=== PATIENT | female | born 1990 | race Caucasian/White ===

== ENCOUNTER 2018-09-10 13:22 | Emergency (ER) | payer MEDICAID, SELFPAY ==
--- NOTE | 2018-09-10 13:35 | NUR.NOTE ---
pt has been experiencing nausea and vomiting for the past 7 days
--- NOTE | 2018-09-10 14:40 | W.ED.GENAD ---
Discharge Plan Disposition Patient Disposition: HOME Condition: Stable Discharge Details Chief Complaint: Nausea/Vomit/Diar Clinical Impression: Nausea vomiting and diarrhea Primary Care Provider: Atul Gauthier ED Provider: Franny De La Rosa Home Meds and New Rx's Prescriptions: New ondansetron HCl [Zofran] 4 mg tablet 4 mg PO TID PRN (Reason: nausea and vomiting) Qty: 6 RF: 0 Continued norgestimate-ethinyl estradiol [Sprintec (28)] 1 EACH tablet 1 tab-cap PO DAILY Qty: 3 RF: 3 sumatriptan succinate [Imitrex] 25 MG tablet 25 mg PO DIRECTED PRN (Reason: Headache) Qty: 8 RF: 0 Discharge Instructions Instructions: Acute Nausea and Vomiting (ED), Acute Diarrhea (ED) Additional Instructions: Drink plenty of fluids and get plenty of rest. Take the Zofran as needed and directed for any nausea or vomiting. Follow-up with your primary care doctor in 2 days for reevaluation. Return immediately to the emergency department any worsening or new concerning symptoms. Stand Alone Forms: Work Release Discharge Data Discharge Physician: Franny De La Rosa Medical Decision Making 28-year-old female presents with nausea, vomiting and diarrhea for the past week. Last vomiting at 3 AM, no diarrhea for the past 2 days. Admits to some ear pain but denies any fever, chills or body aches. Vitals within normal limits. Patient afebrile. Patient appears nontoxic and in no acute distress. No meningeal signs. Normal ENT exam. Lungs clear to auscultation. Abdomen soft and nontender. 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 No flu shot. She is declining a rapid influenza test today. Discussed with patient that her symptoms can viral in nature. As her abdomen is soft and nontender, with normal vitals, I do not see any indication for imaging and patient is agreeable. Offered IV and IV fluids with patient declines. Will obtain labs due to symptoms present for 1 week to assess for acute electrolyte abnormality, and kidney function and will give a dose of PO zofran and reassess. 1600 --labs reviewed and unremarkable. Normal white blood cell count, electrolytes and renal function. Normal liver function and lipase. No evidence of infection on urinalysis. Urine negative. Patient states she feels much better and is requesting to go home. She denies any nausea. Patient is declining any food or drink at this time. We will send home with 1 tab of Zofran as well as prescription. She requests a work note. Instructed to follow-up with primary care doctor for reevaluation and return at any time if worse. Medical Records Medical records reviewed: Yes I reviewed the patient's medical records. Lab Data Lab results reviewed: Yes I reviewed the patient's lab results. Laboratory Tests Range/Units 09/10/18 09/10/18 09/10/18 14:28 14:43 14:43 WBC (4.4-10.8) k/cumm 4.84 RBC (4.00-5.20) m/cumm 4.39 Hgb (12.0-15.5) g/dL 13.1 Hct (36.0-46.0) % 38.1 MCV (80-95) fL 86.8 MCH (27.0-33.0) pg 29.8 MCHC (32.0-36.0) g/dL 34.4 RDW (11.7-14.6) % 12.0 Plt Count (130-400) x1000/uL 242 MPV (8.0-11.0) fL 11.1 H Immature Gran % 0.0 Neutrophils % 48.8 Lymphocytes % 40.1 Monocytes % 9.1 Eosinophils % 1.4 Basophils % 0.6 Absolute Neutrophils (1.2-6.7) k/cumm 2.36 Absolute Lymphocytes (1.2-3.4) k/cumm 1.94 Absolute Monocytes (0.11-0.7) k/cumm 0.44 Absolute Eosinophils (0.0-0.7) k/cumm 0.07 Absolute Basophils (0.0-0.2) k/cumm 0.03 Sodium (136-145) mmol/L 143 Potassium (3.5-5.1) mmol/L 3.6 Chloride (98-107) mmol/L 105 Carbon Dioxide (21.0-32.0) mmol/L 29.3 Anion Gap (3-11) mmol/L 8.7 BUN (7-18) mg/dL 8 Creatinine (0.55-1.02) mg/dL 0.53 L Estimated GFR/1.73 m2 (mL/min/1.73m2) >= 60.00 Glucose (70-100) mg/dL 71 Calcium (8.5-10.1) mg/dL 9.3 Total Bilirubin (0.2-1.0) mg/dL 1.5 H AST (15-37) U/L 9 L ALT (12-78) U/L 23 Alkaline Phosphatase (46-116) U/L 31 L Total Protein (6.4-8.2) g/dL 7.7 Albumin (3.4-5.0) g/dL 4.1 Lipase (73-393) U/L 177 Urine Color (Yellow) Yellow Urine Clarity Clear Urine pH (5-8) 8.5 H Ur Specific [place] (1.005-1.025) 1.015 Urine Protein (Negative) mg/dL Negative Urine Ketones (Negative) mg/dL Negative Urine Blood (Negative) Negative Urine Nitrite (Negative) Negative Urine Bilirubin (Negative) Negative Urine Urobilinogen (Up TO 0.2) EU/dL 0.2 Ur Leukocyte Esterase (Negative) Negative Urine Glucose (Negative) mg/dL Negative Urine test negative HPI General Mode of arrival: ambulatory. Date/Time Provider Initiated Documentation: 09/10/18 14:16. Limitations to Documentation: no limitations. Information obtained by: patient. HPI Narrative: Patient is a 28-year-old female who presents with nausea and diarrhea for the past week, vomiting for the past 2 days. States her last episode of diarrhea was 2 days ago. States the diarrhea has been loose and brown but denies any bleeding. She states she has been vomiting up to 2 times daily, last occurring at 3 AM this morning. She also admits to a feeling of fluid in both of her ears with decreased hearing and right ear pain. She admits to feeling feverish but denies any known fever, chills or body aches. She admits to intermittent lower abdominal pain, but denies any at present. 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 She has been using Pepto-Bismol for symptoms without relief. She denies any urinary symptoms, chest pain, shortness of breath, rash, recent travel, recent antibiotics. Related Data Home Medications Medication Instructions Recorded Confirmed sumatriptan succinate [Imitrex] 25 mg PO DIRECTED PRN #8 tablet 03/27/15 12/01/17 norgestimate-ethinyl estradiol 1 tab-cap PO DAILY #3 pack 03/15/18 [Sprintec (28)] ondansetron HCl [Zofran] 4 mg PO TID PRN #6 tab 09/10/18 Previous Rx's Medication Instructions Recorded sumatriptan succinate [Imitrex] 25 mg PO DIRECTED PRN #8 tablet 03/27/15 norgestimate-ethinyl estradiol 1 tab-cap PO DAILY #3 pack 03/15/18 [Sprintec (28)] ondansetron HCl [Zofran] 4 mg PO TID PRN #6 tab 09/10/18 Allergies Allergy/AdvReac Type Severity Reaction Status Date / Time No Known Allergies Allergy Unverified 03/15/18 11:51 General Stated Complaint: Nausea/Vomit/Diar GIAN: 4 Review of Systems Review of Systems All systems reviewed & are unremarkable except as noted in HPI and below Constitutional Reports as per HPI, Denies chills and Denies fever(s) Eyes Denies blurry vision ENT Denies dizziness, Denies sore throat and Denies throat swelling Cardiovascular Denies chest pain and Denies dyspnea Respiratory Denies cough and Denies dyspnea Gastrointestinal Denies abdominal pain, Reports diarrhea and Reports vomiting Genitourinary Denies hematuria and Denies dysuria Musculoskeletal Denies back pain and Denies numbness Integumentary/Breasts Denies lesions and Denies rash Neurologic Denies dizziness, Denies focal weakness and Denies numbness Allergic/Immunologic Denies throat swelling [facility] Medical History Migraine (Chronic) Surgical History H/O wisdom tooth extraction (Acute) Adenoidectomy Tonsillectomy Family History Father No problems noted. Mother No problems noted. Grandmother Personal history of malignant neoplasm Hyperlipidemia Grandfather No problems noted. Social History Smoking and Tabacco status: Former Tobacco Use Exam Const General: cooperative and healthy appearing Orientation: alert and awake [facility] Head: normal to inspection Ears: hearing grossly normal bilaterally, external ears normal and TM's normal bilaterally General nose exam: external nose normal Face and sinus: normal facial exam Mouth: oral mucosae normal Teeth and gingiva: dentition normal Throat: posterior oropharynx normal Eyes General: appearance normal, both eyes and all related structures Eyelids: eyelids normal Pupils: PERRL EOM: EOM intact bilaterally Neck Neck: normal visual inspection Lymphatic: no lymphadenopathy noted Chest Chest: normal inspection of the chest Resp Effort & Inspection: normal respiratory effort and able to speak in complete sentences Auscultation: clear to auscultation bilaterally Cardio Rate: regular rate Rhythm: regular rhythm GI Inspection: normal to inspection Palpation: soft, not firm, no guarding, no hepatosplenomegaly, no masses and nontender Auscultation: normal bowel sounds Skin General skin exam: no rashes or lesions noted Neuro General: alert and awake Cognition: normal cognition Speech: speech normal Gait: normal gait Motor: muscle tone normal throughout Sensory Exam: no sensory deficits noted Extrem General: normal to inspection, full ROM, normal capillary refill and no edema Psych Appearance: grossly normal Mental Status: mental status grossly normal Speech and Movement: speech and movement normal Affect: normal affect Thought Process: normal
[2018-09-10 14:55] LABS: Absolute Basophil Count 0.03 k/cumm (0.0-0.2); Absolute Eosinophil Count 0.07 k/cumm (0.0-0.7); Absolute Lymphocyte Count 1.94 k/cumm (1.2-3.4); Absolute Monocyte Count 0.44 k/cumm (0.11-0.7); Absolute Neutrophil Count 2.36 k/cumm (1.2-6.7); Basophils % 0.6; Eosinophils % 1.4; HCT 38.1 % (36.0-46.0); HGB 13.1 g/dL (12.0-15.5); Lymphocytes % 40.1; Mean Corp. HGB Concentration 34.4 g/dL (32.0-36.0); Mean Corpuscular Hemoglobin 29.8 pg (27.0-33.0); Mean Corpuscular Volume 86.8 fL (80-95); Mean Platelet Volume 11.1 fL (8.0-11.0); Monocytes % 9.1; Neutrophils % 48.8; Platelet Count 242 x1000/uL (130-400); RBC 4.39 m/cumm (4.00-5.20); White Blood Cell Count 4.84 k/cumm (4.4-10.8)
[2018-09-10] MEDS: Dicyclomine 20 MG TAB PO (14:56)
[2018-09-10 14:57] LABS: Bilirubin Negative (Negative); Blood Negative (Negative); Clarity Clear; Glucose Negative (Negative); Ketones Negative (Negative); Leukocyte Esterase Negative (Negative); Nitrite Negative (Negative); Specific Gravity 1.015 (1.005-1.025); Urobilinogen 0.2 EU/dL (Up TO 0.2); pH 8.5 (5-8)
[2018-09-10] MEDS: Ondansetron O.D.T. 4 MG TABEF PO ×2 (14:57→16:04)
[2018-09-10 15:08] LABS: ALT 23 U/L (12-78); AST 9 U/L (15-37); Albumin 4.1 g/dL (3.4-5.0); Alkaline Phosphatase 31 U/L (46-116); Anion Gap 8.7 mmol/L (3-11); BUN 8 mg/dL (7-18); Bilirubin, Total 1.5 mg/dL (0.2-1.0); CO2 29.3 mmol/L (21.0-32.0); CREATININE 0.53 mg/dL (0.55-1.02); Chloride 105 mmol/L (98-107); Glucose 71 mg/dL (70-100); Lipase 177 U/L (73-393); Potassium 3.6 mmol/L (3.5-5.1); Sodium 143 mmol/L (136-145); Total Protein 7.7 g/dL (6.4-8.2)
[2018-09-10 15:19] LABS: Calcium 9.3 mg/dL (8.5-10.1)
[2018-09-10 16:04] VITALS: BP 111/58; PULSE 60; RESP 16; TEMP 36.6; O2SAT 100
[2018-09-10 20:22] VITALS: BP 111/58; PULSE 60; RESP 16; TEMP 36.6; O2SAT 100
== END 2018-09-10 16:19 | disposition home or self-care (01) ==
PROVIDERS: Emergency Provider Physician Assistant; PCP Specialist/Technologist Athletic Trainer
DX: R11.2 Nausea with vomiting, unspecified (principal); R19.7 Diarrhea, unspecified
CPT/HCPCS: 36415; 80053; 81025; 83690; 99283; 81003; 85025

== ENCOUNTER 2018-10-21 19:29 | Emergency (ER) | payer MEDICAID, SELFPAY ==
[2018-10-21 19:36] VITALS: BP 122/69; PULSE 107; RESP 20; TEMP 37.1; O2SAT 98
--- NOTE | 2018-10-21 19:57 | W.ED.GENAD ---
Discharge Plan Disposition Patient Disposition: HOME Condition: Good Discharge Details Chief Complaint: EarProblem Clinical Impression: Acute right otitis media Primary Care Provider: Atul Gauthier ED Provider: Moody Leroy Home Meds and New Rx's Prescriptions: New amoxicillin 500 mg capsule 500 mg PO BID Qty: 14 RF: 0 No Action norgestimate-ethinyl estradiol [Sprintec (28)] 1 EACH tablet 1 tab-cap PO DAILY Qty: 3 RF: 3 sumatriptan succinate [Imitrex] 25 MG tablet 25 mg PO DIRECTED PRN (Reason: Headache) Qty: 8 RF: 0 Discharge Instructions Instructions: Otitis Media (ED) Additional Instructions: Please take the antibiotic as directed. If you notice any worsening of your symptoms, or any new symptoms such as vomiting, diarrhea, fever, chills, shortness of breath, chest pain, numbness, weakness, or fainting , please return immediately to the emergency department for reevaluation. Please follow up with your primary care provider as soon as possible for reassessment and reevaluation. As always, it was a pleasure participating in your medical care today. Referrals: Atul Gauthier [Primary Care Provider] - Medical Decision Making This is a pleasant 28-year-old female who presents with pain in her right ear. She has a history of cerumen impaction. No evidence of clinical infection for otitis externa, however we are unable to visualize the tympanic membrane. We will washout the ear, remove the wax, and reassess. 8:10 PM After both suctioning, and fluid washout, the patient has had complete removal of cerumen impaction. She is feeling much better at this time. Evaluation of her right tympanic membrane demonstrates both erythema, and a small amount of effusion as well, effusion does appear slightly purulent. No evidence of rupture peer I do feel that she is suffering from otitis media. Will give first dose of amoxicillin here, prescription for home use. Recommended continue Tylenol and Motrin. Discussed red flags for which to return and the patient understands. I have extensively reviewed the treatment plan and discharge instructions with the patient. I have addressed all patient concerns at this time. The patient was made aware of what symptoms to monitor for that would warrant a return to the emergency department. Discussed the plan with the patient, they demonstrate verbal understanding and agreement with our assessment and plan at this time. HPI General Date/Time Provider Initiated Documentation: 10/21/18 19:30. HPI Narrative: This is a 28-year-old female with no significant past medical history except for previous problems with earwax who presents today for pain in the right ear, decreased hearing in the right ear, and suspected earwax impaction. Patient states that the symptoms have been present for the last 1-2 weeks. She denies any headache, fever, chills, discharge or other complaints. She denies any other modifying factors. No other complaints at this time. Related Data Home Medications Medication Instructions Recorded Confirmed sumatriptan succinate [Imitrex] 25 mg PO DIRECTED PRN #8 tablet 03/27/15 10/21/18 norgestimate-ethinyl estradiol 1 tab-cap PO DAILY #3 pack 03/15/18 10/21/18 [Sprintec (28)] amoxicillin 500 mg PO BID #14 cap 10/21/18 Previous Rx's Medication Instructions Recorded sumatriptan succinate [Imitrex] 25 mg PO DIRECTED PRN #8 tablet 03/27/15 norgestimate-ethinyl estradiol 1 tab-cap PO DAILY #3 pack 03/15/18 [Sprintec (28)] amoxicillin 500 mg PO BID #14 cap 10/21/18 Allergies Allergy/AdvReac Type Severity Reaction Status Date / Time No Known Allergies Allergy Unverified 10/21/18 20:10 General Stated Complaint: EarProblem GIAN: 4 Review of Systems Review of Systems All systems reviewed & are unremarkable except as noted in HPI and below PFSH Social History Smoking/Tobacco Use Status: Former Tobacco Use Drug use: Daily Do you feel safe at home: Yes Do you feel safe in your relationship?: Yes Exam Narrative Exam Narrative: 1.Const: Well-nourished, Well-developed, appearing stated age 2.Eyes: PERRL, no conjunctival injection, and symmetrical lids. 3.ENT: Atraumatic external nose and ears. Moist MM. Neck: Symmetric, trachea midline, No thyromegaly. Left ear demonstrates mild cerumen impaction, right ear demonstrates complete cerumen impaction. Unable to visualize the tympanic membrane. No evidence of erythema in the ear canal, no mastoid tenderness. No tenderness on the tragus of the auricle. 4.CVS: +S1/S2, No murmurs or gallops. Peripheral pulses 2+ and equal in all extremities. Brisk capillary refill in all extremities. 5.RESP: Unlabored respiratory effort. Clear to auscultation bilaterally. No wheezes rales or rhonchi 6.GI: Soft, Nontender/Nondistended, No hepatosplenomegaly. No guarding or rebound. 7.MSK: Normocephalic/Atraumatic, Extremities w/o deformity or ttp No cyanosis or clubbing, Normal movement of all extremities 8.Skin: Warm, Dry. No rashes or lesions. 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 Sensation grossly intact, no focal neurologic deficits. 10.Psych: (AAO) x3. Appropriate mood and affect Course Vital Signs Temperature 37.1 C 10/21/18 19:36 Pulse 107 H 10/21/18 19:36 Respiratory Rate 20 10/21/18 19:36 Blood Pressure 122/69 10/21/18 19:36 Pulse Oximetry 98 10/21/18 19:36 Temperature 37.1 C 10/21/18 19:36 Temperature Source Temporal Artery Scan 10/21/18 19:36 Pulse 107 H 10/21/18 19:36 Respiratory Rate 20 10/21/18 19:36 Respiratory Effort Non-Labored 10/21/18 19:36 Blood Pressure 122/69 10/21/18 19:36 Blood Pressure Position Sitting 10/21/18 19:36 Pulse Oximetry 98 10/21/18 19:36 Oxygen Delivery Method Room Air 10/21/18 19:36 Oxygen Flow Rate 0 10/21/18 19:36 Pain Level 8 10/21/18 19:40
[2018-10-21] MEDS: Amoxicillin 500 MG CAP PO (20:16)
== END 2018-10-21 20:21 | disposition home or self-care (01) ==
PROVIDERS: Emergency Provider Student in an Organized Health Care Education/Training Program; PCP Specialist/Technologist Athletic Trainer
DX: H66.91 Otitis media, unspecified, right ear (principal)
CPT/HCPCS: 99283

== ENCOUNTER 2019-03-09 17:41 | Emergency (ER) | payer MEDICAID, SELFPAY ==
[2019-03-09 17:51] VITALS: BP 118/74; PULSE 98; RESP 20; TEMP 36.9; O2SAT 96
[2019-03-09 18:08] LABS: Bilirubin Negative (Negative); Blood Trace-lysed (Negative); Clarity Clear (Clear); Glucose Negative (Negative); Ketones Negative (Negative); Leukocyte Esterase Negative (Negative); Nitrite Negative (Negative); Specific Gravity 1.015 (1.005-1.025); Urobilinogen 0.2 EU/dL (Up TO 0.2)
[2019-03-09 18:19] LABS: Bacteria Moderate HPF (Negative); C & S Indicated? Yes; Casts Negative LPF (Negative); Crystals Negative HPF (Negative); Epithelial Cells Few HPF (Negative); Mucus Negative (Negative); RBC Negative (0-2); WBC 0-2 HPF (0-5)
[2019-03-09 18:28] VITALS: BP 118/74; PULSE 98; RESP 20; TEMP 36.9; O2SAT 96
--- NOTE | 2019-03-09 18:28 | W.ED.GENAD ---
Discharge Plan Disposition Patient Disposition: HOME Condition: Stable Discharge Details Chief Complaint: Urinary Clinical Impression: Urinary tract infection Primary Care Provider: Atul Gauthier ED Provider: Felipe Conrad Home Meds and New Rx's Prescriptions: New ciprofloxacin HCl 500 mg tablet 500 mg PO BID Qty: 14 RF: 0 No Action sumatriptan succinate [Imitrex] 25 MG tablet 25 mg PO DIRECTED PRN (Reason: Headache) Qty: 8 RF: 0 Discharge Instructions Instructions: Urinary Tract Infection in Women (ED) Additional Instructions: if not better in a week see your primary care provider or women's wellness if you have fevers, severe worsening pain or persistent vomit return to the emergency department Medical Decision Making 28 yo female with no chronic medical problems comes in with 2 weeks of urinary frequency and burning. Finally came in tonight as symptoms have not improved and has not had time to be seen. No fevers or abdominal pain. Does have right cva tenderness on exam otherwise appears well in no distress. UA does have bacteria so will start her glenn bx to cover for uti and given cva tenderness will prescribe cipro to cover for early pyelo. Advised f/u with pcp or women's wellness if not better or return here if worsening Differential Diagnosis cystitis, pyelo HPI General Mode of arrival: ambulatory. Date/Time Provider Initiated Documentation: 03/09/19 17:53. Limitations to Documentation: no limitations. Information obtained by: patient. History of Present Illness 28 year old F presents to the emergency department with the chief complaint of urinary frequency, described as moderate, No relieving factors improve symptom(s), No exacerbating factors reported . Patient did receive the following treatments prior to arrival, none Related Data Home Medications Medication Instructions Recorded Confirmed sumatriptan succinate [Imitrex] 25 mg PO DIRECTED PRN #8 tablet 03/27/15 03/09/19 ciprofloxacin HCl 500 mg PO BID #14 tab 03/09/19 Previous Rx's Medication Instructions Recorded sumatriptan succinate [Imitrex] 25 mg PO DIRECTED PRN #8 tablet 03/27/15 ciprofloxacin HCl 500 mg PO BID #14 tab 03/09/19 Allergies Allergy/AdvReac Type Severity Reaction Status Date / Time No Known Allergies Allergy Unverified 03/09/19 17:52 General Stated Complaint: Urinary GIAN: 3 Review of Systems Review of Systems All systems reviewed & are unremarkable except as noted in HPI and below Constitutional Denies chills, Denies fever(s) and Denies weakness Cardiovascular Denies dyspnea Respiratory Denies dyspnea Gastrointestinal Denies abdominal pain, Denies nausea and Denies vomiting Neurologic Denies weakness [facility] Social History Smoking/Tobacco Use Status: Former Tobacco Use Drug use: Daily Do you feel safe at home: Yes Do you feel safe in your relationship?: Yes Exam Const General: no acute distress Orientation: alert HENMT Head: normal to inspection Ears: external ears normal General nose exam: external nose normal Mouth: moist mucous membranes Eyes General: appearance normal, both eyes and all related structures Neck Neck: normal visual inspection Resp Effort & Inspection: normal respiratory effort and able to speak in complete sentences Cardio Rate: regular rate Skin General skin exam: no rashes or lesions noted Neuro General: alert and oriented x3 Extrem General: normal to inspection Psych Mental Status: mental status grossly normal Course Vital Signs Temperature 36.9 C 03/09/19 17:51 Pulse 98 H 03/09/19 17:51 Respiratory Rate 20 03/09/19 17:51 Blood Pressure 118/74 03/09/19 17:51 Pulse Oximetry 6 L 03/09/19 17:51 Temperature 36.9 C 03/09/19 17:51 Temperature Source Temporal Artery Scan 03/09/19 17:51 Pulse 98 H 03/09/19 17:51 Respiratory Rate 20 03/09/19 17:51 Respiratory Effort Non-Labored 03/09/19 17:55 Blood Pressure 118/74 03/09/19 17:51 Pulse Oximetry 6 L 03/09/19 17:51 Oxygen Delivery Method Room Air 03/09/19 17:51 Oxygen Flow Rate 0 03/09/19 17:51 Pain Level 6 03/09/19 17:51 Lab/Test Results Lab/Test Results: 03/09/19 18:00 Urine - Reflex from Ua Urine Culture - Pending Laboratory Tests Range/Units 03/09/19 18:00 Urine Color (Yellow) Yellow Urine Clarity (Clear) Clear Urine pH (5-8) 7.0 Ur Specific [place] (1.005-1.025) 1.015 Urine Protein (Negative) mg/dL Negative Urine Ketones (Negative) mg/dL Negative Urine Blood (Negative) Trace-lysed H Urine Nitrite (Negative) Negative Urine Bilirubin (Negative) Negative Urine Urobilinogen (Up TO 0.2) EU/dL 0.2 Ur Leukocyte Esterase (Negative) Negative Urine RBC (0-2) Negative Urine WBC (0-5) HPF 0-2 Ur Epithelial Cells (Negative) HPF Few Urine Crystals (Negative) HPF Negative Urine Bacteria (Negative) HPF Moderate Urine Casts (Negative) LPF Negative Urine Mucus (Negative) Negative Ur Culture Indicated? Yes Urine Glucose (Negative) mg/dL Negative
== END 2019-03-09 18:31 | disposition home or self-care (01) ==
PROVIDERS: Emergency Provider Emergency Medicine; PCP Specialist/Technologist Athletic Trainer
DX: N39.0 Urinary tract infection, site not specified (principal)
CPT/HCPCS: 81025; 99283; 81003; 81015; 87086

== ENCOUNTER 2019-03-28 08:31 | Outpatient (REF) | payer MEDICAID, SELFPAY ==
--- NOTE | 2019-03-28 07:30 | PAPFT_PTH ---
PATIENT: Clarita Dominguez LOC: [facility] U#:[id number] AGE/SX: 28/F ROOM: RE03/28/[address]: Chaya Woodall : 1990 BED: DIS: 03/28/2019 SPEC #: [id number] RECD: 03/29/19 12:47 STATUS: KELLIE REPepe #: [id number] ZAIDA: 03/28/19 07:[address]: Chaya Woodall DEPT: [facility] Cytology RECD BY: María Elena Kate ENTERED: 03/29/19 12:47 SP TYPE: PAPFT OTHR DR: Atul Gauthier Tissues: 1 - CX/ENDOCX FOR PAP SMEARS Procedures: PAP THIN PREP/[facility] Screening Comments: [id number]
[2019-03-30 13:09] LABS: Chlamydia Result Negative; GC Result Negative; Specimen Description CERVIX
== END 2019-03-28 08:51 ==
LOC: NCHCN 08:31
PROVIDERS: PCP Specialist/Technologist Athletic Trainer; Visit Provider Physician Assistant Medical
DX: R30.0 Dysuria (principal); Z12.4 Encounter for screening for malignant neoplasm of cervix
CPT/HCPCS: 87491; 87591; 88142; 87480; 87510; 87660

== ENCOUNTER 2019-12-05 18:23 | Outpatient (REF) | payer MEDICAID, SELFPAY ==
[2019-12-07 15:07] LABS: Chlamydia Result Negative (Negative); GC Result Negative (Negative)
== END 2019-12-05 18:43 ==
LOC: NCHCN 18:23
PROVIDERS: PCP Specialist/Technologist Athletic Trainer; Referring Provider Nurse Practitioner Family; Visit Provider Nurse Practitioner Family
DX: R30.0 Dysuria (principal); Z11.3 Encounter for screening for infections with a predominantly sexual mode of transmission; R10.9 Unspecified abdominal pain
CPT/HCPCS: 87491; 87591; 87086; 87480; 87510; 87660

== ENCOUNTER 2020-10-01 19:37 | Outpatient (REF) | payer MEDICAID, SELFPAY | END 2020-10-01 19:38 | disposition home or self-care (01) | LOC: NCHCN 19:37 | PROVIDERS: PCP Specialist/Technologist Athletic Trainer; Visit Provider Nurse Practitioner Family | DX: L98.8 Other specified disorders of the skin and subcutaneous tissue (principal) | CPT/HCPCS: 87077; 87070; 87186 ==

== ENCOUNTER 2021-02-27 07:56 | Emergency (ER) | payer MEDICAID, SELFPAY ==
--- NOTE | 2021-02-27 08:09 | W.ED.GENAD ---
Discharge Plan Disposition Patient Disposition: HOME Condition: Stable Discharge Details Clinical Impression: Nausea & vomiting Primary Care Provider: Atul Gauthier ED Provider: Danilo Thapa Home Meds and New Rx's Prescriptions: New ondansetron HCl [Zofran] 4 mg tablet 4 mg PO Q8H PRNQty: 10 RF: 0 Continued desogestrel-ethinyl estradiol [Apri] 0.15-0.03 mg tablet 1 tab PO DAILY Qty: 84 RF: 2 sumatriptan succinate [Imitrex] 25 MG tablet 25 mg PO DIRECTED PRN (Reason: Headache) Qty: 8 RF: 0 Discharge Instructions Instructions: Acute Nausea and Vomiting (ED) Additional Instructions: Zofran as directed. Clear liquid diet, advance as tolerated. Please watch for new or worsening symptoms and return to the ER for any concerns. Otherwise I recommend reaching out your primary care provider to discuss your ER visit and need for outpatient reevaluation. Medical Decision Making 30-year-old female presents with nausea and vomiting that woke her from sleep around 2 AM this morning, did have fried chicken from [employer] last night. Otherwise she is asymptomatic. She appears well, nontoxic, vital signs are unremarkable, no signs of dehydration, she is not actively dry heaving. Abdomen is soft, nontender, normal bowel sounds throughout. Will obtain IV access, give IV Zofran, fluids, obtain routine laboratory values and reassess. Patient received 1 L IV fluid, Zofran 4 mg, now reports nausea is much improved. Willing to trial p.o. challenge. Laboratory values do not reveal any obvious emergent process. No evidence of leukocytosis. GFR greater than 60, total bili is 1.4, patient has no right upper quadrant discomfort, appears to have had slightly elevated bilirubin in the past. AST 9 ALT 22, alk phosphatase 25, lipase 101. Urinalysis reveals 15 ketones, large blood, she did start her menstrual cycle yesterday. No evidence of leukoesterase, nitrates, only 0-2 white cells. Laboratory values are largely unremarkable. She reports improvement of her symptoms, was able to tolerate p.o. intake without any difficulty. Standard discharge and return precautions given. I will provide a prescription for Zofran. Patient has no additional questions or concerns and is comfortable with this plan. Upon discharge she is asymptomatic. Medical Records Medical records reviewed: Yes I reviewed the patient's medical records. Lab Data Lab results reviewed: Yes I reviewed the patient's lab results. Labs: Laboratory Tests Range/Units 02/27/21 02/27/21 02/27/21 08:05 08:30 08:30 WBC (4.4-10.8) 10^3/uL 6.85 RBC (3.93-5.22) 10^6/uL 4.43 Hgb (11.2-15.7) g/dL 13.0 Hct (36.0-46.0) % 39.4 MCV (80-95) fL 88.9 MCH (27.0-33.0) pg 29.3 MCHC (32.0-36.0) % 33.0 RDW (11.7-14.6) % 11.5 L Plt Count (130-400) 10^3/uL 227 MPV (8.0-11.0) fL 10.8 Immature Gran % 0.1 Neutrophils % 77.9 Lymphocytes % 16.8 Monocytes % 3.9 Eosinophils % 0.9 Basophils % 0.4 Nucleated RBC % % 0 Absolute Neutrophils (1.2-6.7) 10^3/uL 5.33 Absolute Lymphocytes (1.2-3.4) 10^3/uL 1.15 L Absolute Monocytes (0.1-0.8) 10^3/uL 0.27 Absolute Eosinophils (0.0-0.7) 10^3/uL 0.06 Absolute Basophils (0.0-0.2) 10^3/uL 0.03 Sodium (136-145) mmol/L 143 Potassium (3.5-5.1) mmol/L 4.1 Chloride (98-107) mmol/L 107 Carbon Dioxide (21.0-32.0) mmol/L 28.5 Anion Gap (3-11) mmol/L 7.5 BUN (7-18) mg/dL 10 Creatinine (0.55-1.02) mg/dL 0.4 L Estimated GFR/1.73 m2 (mL/min/1.73m2) >= 60.00 Glucose (74-106) mg/dL 113 H Calcium (8.5-10.1) mg/dL 9.0 Total Bilirubin (0.2-1.0) mg/dL 1.4 H AST (15-37) U/L 9 L ALT (14-59) U/L 22 Alkaline Phosphatase (46-116) U/L 25 L Total Protein (6.4-8.2) g/dL 7.1 Albumin (3.4-5.0) g/dL 4.1 Lipase (73-393) U/L 101 Urine Color (Yellow) [place] Urine Clarity (Clear) Cloudy Urine pH (5-8) 6.5 Ur Specific [place] (1.005-1.025) >= 1.030 H Urine Protein (Negative) mg/dL 30 H Urine Ketones (Negative) mg/dL 15 H Urine Blood (Negative) Large H Urine Nitrite (Negative) Negative Urine Bilirubin (Negative) Negative Urine Urobilinogen (Up TO 0.2) EU/dL 0.2 Ur Leukocyte Esterase (Negative) Negative Urine RBC (0-2) HPF >50 H Urine WBC (0-5) HPF 0-2 Ur Epithelial Cells (Negative) HPF Moderate Urine Crystals (Negative) HPF Negative Urine Bacteria (Negative) HPF Few Urine Casts (Negative) LPF Negative Urine Mucus (Negative) Moderate Ur Culture Indicated? No/Sq. Contamination Urine Glucose (Negative) mg/dL Negative HPI General Mode of arrival: ambulatory. Date/Time Provider Initiated Documentation: 02/27/21 08:01. Limitations to Documentation: no limitations. Information obtained by: patient. HPI Narrative: This is a 30-year-old female, denies significant past medical history, presenting to the ER for evaluation of nausea and vomiting. Patient states that she went to bed last night asymptomatic, woke early this morning with nausea and vomiting. She ate fried chicken from [employer] last night and is concerned about food poisoning. To other people in her household did eat the same fried chicken, had a smaller amount and are asymptomatic. Patient denies fever, chest pain, shortness of breath, sore throat, abdominal pain, back pain, vaginal discharge, change in bowel or bladder function. Reports that she started her menstrual cycle yesterday. Patient has no additional questions or service at this time. She did not take any medications for her symptoms. Related Data Home Medications Medication Instructions Recorded Confirmed sumatriptan succinate [Imitrex] 25 mg PO DIRECTED PRN #8 tab 03/27/15 03/09/19 desogestrel 0.15 mg-ethinyl 1 tab PO DAILY #84 tab 01/22/20 01/22/20 estradiol 0.03 mg tablet ondansetron HCl [Zofran] 4 mg PO Q8H PRN #10 tab 02/27/21 Previous Rx's Medication Instructions Recorded sumatriptan succinate [Imitrex] 25 mg PO DIRECTED PRN #8 tab 03/27/15 desogestrel 0.15 mg-ethinyl 1 tab PO DAILY #84 tab 01/22/20 estradiol 0.03 mg tablet ondansetron HCl [Zofran] 4 mg PO Q8H PRN #10 tab 02/27/21 Allergies Allergy/AdvReac Type Severity Reaction Status Date / Time No Known Allergies Allergy Unverified 02/27/21 08:15 General GIAN: 3 Review of Systems Constitutional Constitutional: Denies fatigue, Denies fever(s) and Denies headache(s) ENT Ears, Nose, Mouth, and Throat: Denies headache(s) and Denies neck pain Cardiovascular Cardiovascular: Denies chest pain and Denies dyspnea Respiratory Respiratory: Denies dyspnea Gastrointestinal Gastrointestinal: Denies abdominal pain, Denies constipation, Denies diarrhea, Reports nausea and Reports vomiting Genitourinary Genitourinary: Denies dysuria Musculoskeletal Musculoskeletal: Denies back pain and Denies neck pain Integumentary/Breasts Skin/Breast: Denies rash Neurologic Neurologic: Denies headache(s) Endocrine Endocrine: Denies fatigue [facility] Medical History (Updated 02/27/21 @ 09:49 by EFREN Soto) Migraine Surgical History Adenoidectomy H/O wisdom tooth extraction Tonsillectomy Age 14yrs Family History Father No problems noted. Mother No problems noted. Grandmother Personal history of malignant neoplasm Hyperlipidemia Grandfather No problems noted. Social History Smoking/Tobacco Use Status: Current every day Tobacco Type: cigarettes Smoking risk assessment performed?: Yes Alcohol Intake: current Alcohol Intake frequency: holidays/special occasions only Drug use: Daily Substance use type: marijuana Do you feel safe at home: Yes Do you feel safe in your relationship?: Yes Exam Const General: cooperative, healthy appearing, comfortable and no acute distress Orientation: alert and awake [facility] Head: normal to inspection, normocephalic and atraumatic Face and sinus: normal facial exam Mouth: moist mucous membranes Eyes General: appearance normal, both eyes and all related structures Conjunctivae: conjunctivae normal Neck Neck: normal visual inspection, full ROM, trachea midline and supple Resp Effort & Inspection: normal respiratory effort and able to speak in complete sentences Auscultation: clear to auscultation bilaterally Cardio Rate: regular rate Rhythm: regular rhythm GI Inspection: normal to inspection Palpation: soft, not firm, no guarding, no pulsatile masses and nontender Auscultation: normal bowel sounds Back/Spine/Pelvis Back: No back tenderness Skin General skin exam: no rashes or lesions noted Neuro General: patient alert, patient awake, moves all extremities and no focal motor deficits Cognition: normal cognition Speech: speech normal Gait: normal gait Sensory Exam: no sensory deficits noted Extrem General: normal to inspection and full ROM Psych Appearance: grossly normal Mental Status: mental status grossly normal
[2021-02-27 08:10] VITALS: BP 108/64; PULSE 87; RESP 14; TEMP 36.7; O2SAT 100
[2021-02-27 08:14] LABS: Bilirubin Negative (Negative); Blood Large (Negative); Clarity Cloudy (Clear); Glucose Negative (Negative); Ketones 15 mg/dL (Negative); Leukocyte Esterase Negative (Negative); Nitrite Negative (Negative); Specific Gravity >= 1.030 (1.005-1.025); Urobilinogen 0.2 EU/dL (Up TO 0.2); pH 6.5 (5-8)
[2021-02-27 08:23] LABS: Bacteria Few HPF (Negative); C & S Indicated? No/Sq. Contamination; Casts Negative LPF (Negative); Crystals Negative HPF (Negative); Epithelial Cells Moderate HPF (Negative); Mucus Moderate (Negative); RBC >50 HPF (0-2); WBC 0-2 HPF (0-5)
[2021-02-27] MEDS: Normal Saline 1,000 ML 1000 ML IV (08:37)
[2021-02-27] MEDS: Ondansetron 4 MG/2 ML VIAL IVP (08:37)
[2021-02-27 08:39] LABS: Abs Immature Grans 0.01 10^3/uL (0.0-0.06); Absolute Basophil Count 0.03 10^3/uL (0.0-0.2); Absolute Eosinophil Count 0.06 10^3/uL (0.0-0.7); Absolute Lymphocyte Count 1.15 10^3/uL (1.2-3.4); Absolute Monocyte Count 0.27 10^3/uL (0.1-0.8); Absolute Neutrophil Count 5.33 10^3/uL (1.2-6.7); Basophils % 0.4; Eosinophils % 0.9; HCT 39.4 % (36.0-46.0); Immature Grans % 0.1; Lymphocytes % 16.8; MCH 29.3 pg (27.0-33.0); MCV 88.9 fL (80-95); MPV 10.8 fL (8.0-11.0); Monocytes % 3.9; Neutrophils % 77.9; Nucleated RBC 0 %; Platelet Count 227 10^3/uL (130-400); RBC 4.43 10^6/uL (3.93-5.22); RDW 11.5 % (11.7-14.6); RDW-SD 36.7 fL; WBC 6.85 10^3/uL (4.4-10.8)
[2021-02-27 09:01] LABS: ALT 22 U/L (14-59); AST 9 U/L (15-37); Albumin 4.1 g/dL (3.4-5.0); Alkaline Phosphatase 25 U/L (46-116); Anion Gap 7.5 mmol/L (3-11); BUN 10 mg/dL (7-18); Bilirubin, Total 1.4 mg/dL (0.2-1.0); CO2 28.5 mmol/L (21.0-32.0); CREATININE 0.4 mg/dL (0.55-1.02); Chloride 107 mmol/L (98-107); Glucose 113 mg/dL (74-106); Lipase 101 U/L (73-393); Potassium 4.1 mmol/L (3.5-5.1); Sodium 143 mmol/L (136-145); Total Protein 7.1 g/dL (6.4-8.2)
[2021-02-27 10:10] VITALS: RESP 18
== END 2021-02-27 10:04 | disposition home or self-care (01) ==
PROVIDERS: Emergency Provider Physician Assistant; PCP Specialist/Technologist Athletic Trainer
DX: R11.2 Nausea with vomiting, unspecified (principal); R31.9 Hematuria, unspecified; R80.8 Other proteinuria
CPT/HCPCS: 36415; 80053; 81025; 83690; 96361; 96374; 99284; 81003; 81015; 85025; J2405

== ENCOUNTER 2021-03-05 17:35 | Emergency (ER) | payer MEDICAID, SELFPAY ==
[2021-03-05 17:38] VITALS: BP 99/74; PULSE 80; RESP 16; TEMP 37; O2SAT 98
--- NOTE | 2021-03-05 17:56 | ED.GENADUL_ITS ---
Discharge Plan Disposition Patient Disposition: HOME Condition: Stable Discharge Details Clinical Impression: Neuropathy Primary Care Provider: Cindy Holman ED Provider: Justyna Cortez Home Meds and New Rx's Prescriptions: Continued desogestrel-ethinyl estradiol [Apri] 0.15-0.03 mg tablet 1 tab PO DAILY Qty: 84 RF: 2 sumatriptan succinate [Imitrex] 25 MG tablet 25 mg PO DIRECTED PRN (Reason: Headache) Qty: 8 RF: 0 ondansetron HCl [Zofran] 4 mg tablet 4 mg PO Q8H PRNQty: 10 RF: 0 dexmethylphenidate 10 mg tablet 1 mg PO TID PRN PRNRF: 0 dexmethylphenidate 10 mg tablet 10 mg PO TID RF: 0 Discharge Instructions Additional Instructions: Exam is reassuring here today. However, I am concerned about this affecting one of your superficial nerves. Please begin taking Aleve twice a day for the next week. Please call your primary care to discuss symptoms further. You may need referral to neurology for an EMG for further evaluation. If you develop weakness, fevers, rash or other new/worsening symptoms please seek care urgently once again. Referrals: Atul Gauthier [ NON-[facility] STAFF PHYSICIAN] - Discharge Data Discharge Date/Time-TO BE ENTERED AT DEPARTURE: 03/05/21 18:40 Medical Decision Making Patient is a pleasant [id number] 30-year-old female presenting today with chief complaint of altered sensation in the left forearm. She reports that this began after IV insertion in the left AC last week. She states that since that time she had intermittent numbness and tingling along the dorsal aspect of the left forearm as well as the medial aspect of the left upper arm. She does not noted any weakness. She has not limited her from activities. She denies any symptoms in the hand. Denies any fevers or chills. States that she had initial discomfort with IV insertion, as I need to be removed and inserted on the contralateral arm. On exam, patient appears nontoxic. She is neurovascularly intact. She is able. Bend and flex at the wrist against resistance, good abduction and abduction of the fingers against resistance. Brisk capillary refill, 2+ distal pulses. Full range of motion of the elbow, wrist, hand. No sensory deficit is noted at this time. Reflexes are intact. Advised patient begin taking an anti-inflammatory to help with any and inflammatory component that might be causing this neuropathy. Also advised that she will likely need follow-up with neurology for possible EMG. She will contact her primary care to discuss referral. I encouraged rest, ice, elevation. Also questions and concerns were addressed and she is in agreement with this plan. HPI General Date/Time Provider Initiated Documentation: 03/05/21 17:56 . Limitations to Documentation: no limitations . Information obtained by: patient, RN notes reviewed and old records reviewed . History of Present Illness 30 year old F presents to the emergency department with the chief complaint of left AC discomfort, described as mild, with intensity rated at 3. Quality is described as aching, and is localized to the left and upper extremity. Patient extremity (reports radiation into medial upper arm and dorsal forearm). Patient started experiencing this day(s) and it has been constant. Immobilization improves symptom(s), Movement worsens symptoms . Patient notes no other symptoms.. Patient did receive the following treatments prior to arrival, none Related Data Home Medications Medication Instructions Recorded Confirmed sumatriptan succinate [Imitrex] 25 mg PO DIRECTED PRN #8 tab 03/27/15 03/05/21 desogestrel 0.15 mg-ethinyl 1 tab PO DAILY #84 tab 01/22/20 03/05/21 estradiol 0.03 mg tablet ondansetron HCl [Zofran] 4 mg PO Q8H PRN #10 tab 02/27/21 03/05/21 dexmethylphenidate 1 mg PO TID PRN PRN 03/05/21 03/05/21 dexmethylphenidate 10 mg PO TID 03/05/21 03/05/21 Previous Rx's Medication Instructions Recorded sumatriptan succinate [Imitrex] 25 mg PO DIRECTED PRN #8 tab 03/27/15 desogestrel 0.15 mg-ethinyl 1 tab PO DAILY #84 tab 01/22/20 estradiol 0.03 mg tablet ondansetron HCl [Zofran] 4 mg PO Q8H PRN #10 tab 02/27/21 Allergies Allergy/AdvReac Type Severity Reaction Status Date / Time No Known Allergies Allergy Unverified 03/05/21 17:46 General Stated Complaint: Orthopedic GIAN: 4 Review of Systems Constitutional Constitutional: Reports as per HPI, Denies chills, Denies fever(s), Denies headache(s) and Denies weakness ENT Ears, Nose, Mouth, and Throat: Denies headache(s) Cardiovascular Cardiovascular: Reports as per HPI Respiratory Respiratory: Reports as per HPI and Denies cough Musculoskeletal Musculoskeletal: Reports as per HPI and Reports tingling Integumentary/Breasts Skin/Breast: Reports as per HPI, Denies rash and Reports wounds (associates with IV insertion site) Neurologic Neurologic: Reports as per HPI, Denies headache(s), Reports tingling, Reports paresthesias and Denies weakness [facility] Medical History (Updated 03/05/21 @ 18:31 by EFREN Small) Migraine Surgical History Adenoidectomy H/O wisdom tooth extraction Tonsillectomy Age 14yrs Family History Father No problems noted. Mother No problems noted. Grandmother Personal history of malignant neoplasm Hyperlipidemia Grandfather No problems noted. Social History Smoking/Tobacco Use Status: Current every day Tobacco Type: cigarettes Smoking risk assessment performed?: Yes Alcohol Intake: current Alcohol Intake frequency: holidays/special occasions only Drug use: Daily Substance use type: marijuana Do you feel safe at home: Yes Do you feel safe in your relationship?: Yes Exam Const General: cooperative, healthy appearing, comfortable, no acute distress, well developed and well groomed Nutritional Appearance: average body habitus and well nourished Orientation: alert and awake Resp Effort & Inspection: normal respiratory effort, able to speak in complete sentences and no respiratory distress Cardio Rate: regular rate Rhythm: regular rhythm Skin General skin exam: no rashes or lesions noted Lesions: no lesions Rashes: no rashes Trauma: no lacerations or abrasions Neuro General: patient alert and patient awake Cognition: normal cognition Speech: speech normal Gait: normal gait Motor: muscle tone normal throughout Sensory Exam: no sensory deficits noted Extrem Elbow/forearm/wrist images: 1. Area of discomfort. No wound noted, no erythema, warmth, drainage, swelling. Full ROM. 2+ distal pulses. NEurovascularly intact. 2 point intact. Strength intact. REflexes intact. Psych Appearance: grossly normal and well kempt Mental Status: mental status grossly normal Speech and Movement: speech and movement normal Course Vital Signs Vital signs: Vital Signs Temperature 37 C 03/05/21 17:38 Pulse 80 03/05/21 17:38 Respiratory Rate 16 03/05/21 17:38 Blood Pressure 99/74 L 03/05/21 17:38 Pulse Oximetry 98 03/05/21 17:38 Temperature 37 C 03/05/21 17:38 Temperature Source Temporal Artery Scan 03/05/21 17:38 Pulse 80 03/05/21 17:38 Respiratory Rate 16 03/05/21 17:38 Respiratory Effort Non-Labored 03/05/21 17:45 Blood Pressure 99/74 L 03/05/21 17:38 Blood Pressure Position Sitting 03/05/21 17:38 Pulse Oximetry 98 03/05/21 17:38 Oxygen Delivery Method Room Air 03/05/21 17:38 Oxygen Flow Rate 0 03/05/21 17:38 Pain Level 3 03/05/21 17:48
== END 2021-03-05 18:40 | disposition home or self-care (01) ==
PROVIDERS: Emergency Provider Physician Assistant; PCP Nurse Practitioner Family
DX: G62.9 Polyneuropathy, unspecified (principal)
CPT/HCPCS: 99282

== ENCOUNTER 2021-03-17 10:32 | Outpatient (REF) | payer MEDICAID, SELFPAY ==
--- NOTE | 2021-03-17 09:45 | PAPFT_PTH ---
PATIENT: Clarita Dominguez LOC: [facility]#:[id number] AGE/SX: 30/F ROOM: RE03/17/[address]: Cindy Holman : 1990 BED: DIS: 03/17/2021 SPEC #: [id number] RECD: 03/18/21 12:51 STATUS: KELLIE REQ #: [id number] ZAIDA: 03/17/21 09:[address]: Cindy Holman DEPT: [facility] Cytology RECD BY: María Elena Kate Tissues: 1 - CX/ENDOCX FOR PAP SMEARS Procedures: PAP THIN PREP/UVM Screening Comments: [id number] (CHLAMYDIA/GC)
[2021-03-17 15:23] LABS: TSH (W/Ref FT4) 0.73 uIU/mL (0.36-3.74)
[2021-03-19 14:51] LABS: Chlamydia Result Negative (Negative); GC Result Negative (Negative)
== END 2021-03-17 10:33 | disposition home or self-care (01) ==
LOC: NCHCN 10:32
PROVIDERS: PCP Nurse Practitioner Family; Visit Provider Nurse Practitioner Family
DX: Z12.4 Encounter for screening for malignant neoplasm of cervix (principal); Z01.419 Encounter for gynecological examination (general) (routine) without abnormal findings; F41.8 Other specified anxiety disorders
CPT/HCPCS: 87491; 87591; 88142; 84443

== ENCOUNTER 2021-04-10 09:31 | Outpatient (REF) | payer MEDICAID, SELFPAY ==
[2021-04-11 12:10] LABS: COVID-19 RT-PCR UVMMC Result Negative (Negative)
== END 2021-04-10 09:32 | disposition home or self-care (01) ==
LOC: NCHCN 09:31
PROVIDERS: PCP Nurse Practitioner Family; Visit Provider Physician Assistant Medical
DX: Z20.822 Contact with and (suspected) exposure to COVID-19 (principal)
CPT/HCPCS: U0003

== ENCOUNTER 2022-01-09 10:40 | Outpatient (REF) | payer MEDICAID, SELFPAY ==
[2022-01-10 10:41] LABS: COVID-19 RT-PCR UVMMC Result Negative (Negative)
== END 2022-01-09 10:41 | disposition home or self-care (01) ==
LOC: LBN 10:40
PROVIDERS: PCP Nurse Practitioner Family; Visit Provider Physician Assistant Medical
DX: Z20.822 Contact with and (suspected) exposure to COVID-19 (principal); R05.8 Other specified cough
CPT/HCPCS: U0003

== ENCOUNTER 2022-02-21 10:57 | Emergency (ER) | payer MEDICAID, SELFPAY ==
[2022-02-21 11:12] VITALS: BP 104/60; PULSE 108; RESP 18; TEMP 36.4; O2SAT 97
[2022-02-21] MEDS: Ondansetron O.D.T. 4 MG TABEF (12:17)
[2022-02-21 12:18] LABS: Influenza A PCR Negative (Negative); Influenza B PCR Negative (Negative); RSV PCR Negative (Negative)
[2022-02-21 12:20] LABS: COVID-19 PCR Positive (Negative); Source Nasopharynx
[2022-02-21 12:27] VITALS: RESP 19
--- NOTE | 2022-02-21 12:29 | NUR.NOTE ---
pt refused further care .Nursing Note:
--- NOTE | 2022-02-21 12:41 | W.ED.GENAD ---
Discharge Plan Disposition Patient Disposition: HOME Condition: Stable Discharge Details Clinical Impression: COVID Primary Care Provider: Cindy Holman ED Provider: Danilo Thapa Home Meds and New Rx's Prescriptions: New ondansetron 4 mg tablet,disintegrating 4 mg PO TID PRN3 Days Qty: 9 0RF Continued norethindrone-e.estradiol-iron [June FE 1.5/30 (28)] 1.5 mg-30 mcg (21)/75 mg (7) tablet 1 tab PO DAILY Qty: 84 1RF sumatriptan succinate [Imitrex] 25 MG tablet 25 mg PO DIRECTED PRN (Reason: Headache) Qty: 8 0RF ondansetron HCl [Zofran] 4 mg tablet 4 mg PO Q8H PRNQty: 10 0RF lorazepam 1 mg tablet 1 mg PO TID PRN Label Comments: TAKE ONE TABLET BY MOUTH THREE TIMES A DAY - MAXIMUM DAILY DOSE = 3 TABLETS dexmethylphenidate 10 mg tablet 1 mg PO TID PRN PRN Label Comments: TAKE ONE TABLET BY MOUTH THREE TIMES A DAY dexmethylphenidate 10 mg tablet 10 mg PO TID Label Comments: TAKE ONE TABLET BY MOUTH THREE TIMES A DAY Discharge Instructions Instructions: COVID-19 (Coronavirus Disease 2019) (ED) Additional Instructions: Your COVID test is positive today. Plenty of fluids to avoid dehydration. Ubrk-god-jjfqksw medications as directed for symptomatic control. Zofran as directed for nausea. Please watch for new or worsening symptoms and return to the ER for any concerns. I recommend contacting your primary care provider on Wednesday to discuss your ER visit and set up an outpatient telemedicine appointment for follow-up. Medical Decision Making 31-year-old female with no significant past medical history presents to the ER with viral-like syndrome over the past 24 hours, concern for COVID. She is afebrile, O2 sat is 97% on room air and her lungs are clear to auscultation. She does present with mild tachycardia. Given her mild tachycardia and nausea, will obtain IV access, give IV fluid, Zofran, obtain routine screening laboratory values, as well as a rapid strep swab, COVID, flu, RSV swab We were able to obtain blood but she was a difficult IV access and declined IV. Unfortunately her blood was hemolyzed and she is declining another blood draw Rapid strep negative COVID positive Patient made aware of her COVID test, requesting documentation. We discussed Paxlovid and/or MAB. She does not meet criteria and states that she would want this treatment anyways. We discussed conservative measures with lcnx-orq-sjwafii medications, rest, and proper outpatient Strict discharge and return precautions were provided. Patient understands, is agreeable to this plan, and has no additional questions or concerns upon discharge. This documentation was generated using [employer] system, please disregard any oddities of phrase or misspellings. Medical Records Medical records reviewed: Yes I reviewed the patient's medical records. Lab Data Lab results reviewed: Yes I reviewed the patient's lab results. Labs: 02/21/22 11:23 Tonsil - Not Specified Group A Streptococcus Culture - Pending Laboratory Tests Range/Units 02/21/22 02/21/22 02/21/22 11:23 12:13 12:13 WBC Cancelled RBC Cancelled Hgb Cancelled Hct Cancelled MCV Cancelled MCH Cancelled MCHC Cancelled RDW Cancelled Plt Count Cancelled MPV Cancelled Immature Gran % Cancelled Neutrophils % Cancelled Band Neutrophils % Cancelled Lymphocytes % Cancelled Atypical Lymphs % Cancelled Monocytes % Cancelled Eosinophils % Cancelled Basophils % Cancelled Metamyelocytes % Cancelled Myelocytes % Cancelled Promyelocytes % Cancelled Other Cells % Cancelled Nucleated RBC % Cancelled Absolute Neutrophils Cancelled Absolute Lymphocytes Cancelled Absolute Monocytes Cancelled Absolute Eosinophils Cancelled Absolute Basophils Cancelled RBC Morphology Cancelled Polychromasia Cancelled Hypochromasia Cancelled Poikilocytosis Cancelled Basophilic Stippling Cancelled Anisocytosis Cancelled Microcytosis Cancelled Macrocytosis Cancelled Spherocytes Cancelled Tear Drop Cells Cancelled Ovalocytes Cancelled Stomatocytes Cancelled [employer] Bodies Cancelled [place] Cells/Echinocytes Cancelled Acanthocytes (Spur) Cancelled Schistocytes Cancelled Sodium Cancelled Potassium Cancelled Chloride Cancelled Carbon Dioxide Cancelled Anion Gap Cancelled BUN Cancelled Creatinine Cancelled Estimated GFR/1.73 m2 Cancelled Glucose Cancelled Calcium Cancelled Total Bilirubin Cancelled AST Cancelled ALT Cancelled Alkaline Phosphatase Cancelled Total Protein Cancelled Albumin Cancelled Lipase Cancelled COVID-19 Source Nasopharynx SARS-CoV-2 (PCR) (Negative) Positive A Influenza Type A (PCR) (Negative) Negative Influenza Type B (PCR) (Negative) Negative RSV (PCR) (Negative) Negative HPI General Mode of arrival: ambulatory. Date/Time Provider Initiated Documentation: 02/21/22 10:59. Limitations to Documentation: no limitations. Information obtained by: patient. HPI Narrative: This is a 31-year-old female, denies significant past medical history, smokes 4-5 cigarettes daily, presenting to the ER for diffuse headache, sore throat, body aches, nausea, decreased appetite that began yesterday evening. Patient is unvaccinated for COVID and has had a recent sick contacts. She denies documented fever, neck pain, chest pain, shortness of breath, abdominal pain, dysuria or diarrhea. She has not taken any lucq-qcd-daieejo medications for her symptoms. Patient is primarily concerned for COVID and if positive will need documentation to provide to work Related Data Home Medications Medication Instructions Recorded Confirmed sumatriptan succinate 25 mg tablet 25 mg PO DIRECTED PRN Headache 03/27/15 02/21/22 (Imitrex) #8 tabs ondansetron HCl 4 mg tablet 4 mg PO Q8H PRN #10 tabs 02/27/21 02/21/22 (Zofran) dexmethylphenidate 10 mg tablet 1 mg PO TID PRN PRN 03/05/21 03/05/21 dexmethylphenidate 10 mg tablet 10 mg PO TID 03/05/21 02/21/22 norethindrone 1.5 mg-ethinyl 1 tab PO DAILY #84 tabs 02/06/22 02/21/22 estradiol 30 mcg(21)/iron 75 mg(7) tablet (Junel FE 1.5/ (28)) lorazepam 1 mg tablet 1 mg PO TID PRN 02/21/22 02/21/22 ondansetron 4 mg disintegrating 4 mg PO TID PRN 3 days #9 tabs 02/21/22 tablet Previous Rx's Medication Instructions Recorded sumatriptan succinate 25 mg tablet 25 mg PO DIRECTED PRN Headache 03/27/15 (Imitrex) #8 tabs ondansetron HCl 4 mg tablet 4 mg PO Q8H PRN #10 tabs 02/27/21 (Zofran) norethindrone 1.5 mg-ethinyl 1 tab PO DAILY #84 tabs 02/06/22 estradiol 30 mcg(21)/iron 75 mg(7) tablet ( FE 1.530 (28)) ondansetron 4 mg disintegrating 4 mg PO TID PRN 3 days #9 tabs 02/21/22 tablet Allergies Allergy/AdvReac Type Severity Reaction Status Date / Time No Known Allergies Allergy Verified 02/21/22 11:15 General Stated Complaint: GenMedical GIAN: 3 Review of Systems Constitutional Constitutional: Denies fever(s) and Reports headache(s) ENT Ears, Nose, Mouth, and Throat: Reports headache(s), Denies neck pain and Reports sore throat Cardiovascular Cardiovascular: Denies chest pain and Denies dyspnea Respiratory Respiratory: Reports cough and Denies dyspnea Gastrointestinal Gastrointestinal: Denies abdominal pain, Denies constipation, Denies diarrhea, Reports nausea and Denies vomiting Genitourinary Genitourinary: Denies dysuria Musculoskeletal Musculoskeletal: Reports myalgias and Denies neck pain Integumentary/Breasts Skin/Breast: Denies rash Neurologic Neurologic: Reports headache(s) PFSH All Active Problems COVID (Acute) Nausea & vomiting (Acute) Neuropathy (Acute) Medical History Migraine Surgical History Adenoidectomy H/O wisdom tooth extraction Tonsillectomy Age 14yrs Family History Father No problems noted. Mother No problems noted. Grandmother Personal history of malignant neoplasm Hyperlipidemia Grandfather No problems noted. Social History Smoking/Tobacco Use Status: Current every day Tobacco Type: cigarettes Smoking risk assessment performed?: Yes Alcohol Intake: current Alcohol Intake frequency: holidays/special occasions only Drug use: Daily Substance use type: marijuana Do you feel safe at home: Yes Do you feel safe in your relationship?: Yes Exam Const General: cooperative, healthy appearing, comfortable and no acute distress Orientation: alert and awake [facility] Head: normal to inspection, normocephalic and atraumatic Face and sinus: normal facial exam Mouth: moist mucous membranes Throat: posterior oropharynx normal Eyes General: appearance normal, both eyes and all related structures Conjunctivae: conjunctivae normal Neck Neck: normal visual inspection, full ROM, no meningeal signs, trachea midline and supple Resp Effort & Inspection: normal respiratory effort, able to speak in complete sentences and cough Quality of cough: dry (mild) Auscultation: clear to auscultation bilaterally Cardio Rate: tachycardic (102) Rhythm: regular rhythm GI Palpation: soft, not firm, no guarding, no pulsatile masses and nontender Skin General skin exam: no rashes or lesions noted Neuro General: patient alert, patient awake, moves all extremities and no focal motor deficits Cognition: normal cognition Speech: speech normal Gait: normal gait Sensory Exam: no sensory deficits noted Psych Appearance: grossly normal Mental Status: mental status grossly normal Course Vital Signs Vital signs: Vital Signs Temperature 36.4 C L 02/21/22 11:12 Pulse 108 H 02/21/22 11:12 Respiratory Rate 18 02/21/22 11:12 Blood Pressure 104/60 02/21/22 11:12 Pulse Oximetry 97 02/21/22 11:12 Temperature 36.4 C L 02/21/22 11:12 Temperature Source Temporal Artery Scan 02/21/22 11:12 Pulse 108 H 02/21/22 11:12 Respiratory Rate 19 02/21/22 12:27 Respiratory Effort 02/21/22 12:27 Respiratory Depth Normal 02/21/22 12:27 Respiratory Pattern Normal 02/21/22 12:27 Blood Pressure 104/60 02/21/22 11:12 Blood Pressure Position Sitting 02/21/22 11:12 Pulse Oximetry 97 02/21/22 11:12 Oxygen Delivery Method Room Air 02/21/22 11:12 Oxygen Flow Rate 0 02/21/22 11:12 Lab/Test Results Lab/Test Results: 02/21/22 11:23 Tonsil - Not Specified Group A Streptococcus Culture - Pending Laboratory Tests Range/Units 02/21/22 02/21/22 11:23 12:13 WBC Cancelled RBC Cancelled Hgb Cancelled Hct Cancelled MCV Cancelled MCH Cancelled MCHC Cancelled RDW Cancelled Plt Count Cancelled MPV Cancelled Immature Gran % Cancelled Neutrophils % Cancelled Band Neutrophils % Cancelled Lymphocytes % Cancelled Atypical Lymphs % Cancelled Monocytes % Cancelled Eosinophils % Cancelled Basophils % Cancelled Metamyelocytes % Cancelled Myelocytes % Cancelled Promyelocytes % Cancelled Other Cells % Cancelled Nucleated RBC % Cancelled Absolute Neutrophils Cancelled Absolute Lymphocytes Cancelled Absolute Monocytes Cancelled Absolute Eosinophils Cancelled Absolute Basophils Cancelled RBC Morphology Cancelled Polychromasia Cancelled Hypochromasia Cancelled Poikilocytosis Cancelled Basophilic Stippling Cancelled Anisocytosis Cancelled Microcytosis Cancelled Macrocytosis Cancelled Spherocytes Cancelled Tear Drop Cells Cancelled Ovalocytes Cancelled Stomatocytes Cancelled [employer] Bodies Cancelled [place] Cells/Echinocytes Cancelled Acanthocytes (Spur) Cancelled Schistocytes Cancelled COVID-19 Source Nasopharynx SARS-CoV-2 (PCR) (Negative) Positive A Influenza Type A (PCR) (Negative) Negative Influenza Type B (PCR) (Negative) Negative RSV (PCR) (Negative) Negative POC Strep Test-TOM(Rapid) Start: 02/21/22 11:19 Freq: .Rapid Strep Test Status: Active Protocol: Document 02/21/22 11:39 PS (Rec: 02/21/22 11:39 PS [id number]) Strep test-TOM(Rapid)-POC POC-Strep test-TOM (Rapid) Negative POC-Strep test-TOM (Rapid) Negative PAWSS Have you Been Recently Intoxicated or Drunk Within the Last 30 days?: No Have you Ever Experienced Previous Episodes of Alcohol Withdrawal?: No Have you ever Experienced Withdrawal Seizures?: No Have you ever Experienced Delirium Tremens(DT)s?: No Have you ever undergone Alcohol Rehabilitation Treatment (i.e, inpt ot outpatient treatment programs)?: No Have you ever Experienced Blackouts?: No Have you ever Combined Alcohol with other Downers within the last 90 days?: No Have you ever Combined Alcohol with any other Substance of Abuse during the last 90 days?: No Positive Blood Alcohol level on Presentation? [PCS.BAL]: No Evidence of Increased Autonomic Activity (i.e. HR>120, tremor, sweating, agitation, nausea)?: No Result: 0
== END 2022-02-21 12:55 | disposition home or self-care (01) ==
PROVIDERS: Emergency Provider Physician Assistant; PCP Nurse Practitioner Family
DX: U07.1 COVID-19 (principal); F17.210 Nicotine dependence, cigarettes, uncomplicated
CPT/HCPCS: 80053; 83690; 87637; 87880; 96361; 96374; 99284; 85025; 87081

== ENCOUNTER 2022-10-09 19:24 | Outpatient (REF) | payer MEDICAID, SELFPAY ==
[2022-10-09 19:01] LABS: HCT 38.9 % (36.0-46.0); HGB 12.9 g/dL (11.2-15.7); MCH 28.9 pg (27.0-33.0); MCHC 33.2 % (32.0-36.0); MCV 87 fL (80-95); MPV 10.7 fL (8.0-11.0); Platelet Count 308 10^3/uL (130-400); RBC 4.46 10^6/uL (3.93-5.22); RDW 12.1 % (11.7-14.6)
[2022-10-09 19:14] LABS: Iron 70 ug/dL (50-170); Total Iron Binding Capacity 354 ug/dL (250-450); Transferrin Sat 20 % (15-50)
[2022-10-09 19:19] LABS: Hemoglobin A1C 5.2 % (<5.7)
[2022-10-09 19:27] LABS: Anion Gap 8.5 mmol/L (3-11); BUN 10 mg/dL (7-18); CO2 29.5 mmol/L (21.0-32.0); CREATININE 0.6 mg/dL (0.55-1.02); Calcium 8.9 mg/dL (8.5-10.1); Chloride 105 mmol/L (98-107); Estimated GFR 123.76 (mL/min/1.73m2); Ferritin 36 ng/mL (8-252); Glucose 98 mg/dL (74-106); Potassium 3.8 mmol/L (3.5-5.1); Sodium 143 mmol/L (136-145); TSH 1.04 uIU/mL (0.36-3.74)
== END 2022-10-09 19:25 | disposition home or self-care (01) ==
LOC: NCHCN 19:24
PROVIDERS: PCP Nurse Practitioner Family; Visit Provider Nurse Practitioner Family
DX: D50.9 Iron deficiency anemia, unspecified (principal); R42 Dizziness and giddiness; F41.8 Other specified anxiety disorders; R73.09 Other abnormal glucose
CPT/HCPCS: 80048; 85027; 82728; 83036; 83540; 83550; 84443

== ENCOUNTER 2022-10-26 19:10 | Outpatient (REF) | payer MEDICAID, SELFPAY ==
[2022-10-26 20:59] LABS: Bacteria Negative HPF (Negative); C & S Indicated? C&S Done As Ordered; Casts Negative LPF (Negative); Crystals Negative HPF (Negative); Epithelial Cells Few HPF (Negative); Mucus Negative (Negative); Other Cells Negative (Negative); RBC 0-2 HPF (0-2); WBC 0-2 HPF (0-5)
== END 2022-10-26 19:11 | disposition home or self-care (01) ==
LOC: LBN 19:10
PROVIDERS: PCP Nurse Practitioner Family; Visit Provider Nurse Practitioner Family
DX: R39.15 Urgency of urination (principal); N89.8 Other specified noninflammatory disorders of vagina
CPT/HCPCS: 87077; 81015; 87086; 87186; 87480; 87510; 87660

== ENCOUNTER 2023-01-07 18:49 | Emergency (ER) | payer MEDICAID, SELFPAY ==
[2023-01-07] VITALS (20 sets, daily range): BP systolic 97–133; BP diastolic 54–74; PULSE 72–131; RESP 11–26; TEMP 37.1; O2SAT 96–99
--- NOTE | 2023-01-07 18:45 | RT.EKG_ITS ---
APPROVED REPORT Exam: Resting ECG Reason for Exam: rapid heart rate Patient Location: E HR:123 bpm ECG Measurements Heart Rate 123 AXIS NC 158 P 59 QRSd 86 QRS 50 QT 322 T 27 QTc 461 Conclusion Sinus tachycardia...rate> 99
[2023-01-07 19:25] LABS: Abs Immature Grans 0.01 10^3/uL (0.0-0.06); Absolute Basophil Count 0.05 10^3/uL (0.0-0.2); Absolute Eosinophil Count 0.08 10^3/uL (0.0-0.7); Absolute Lymphocyte Count 2.74 10^3/uL (1.2-3.4); Absolute Monocyte Count 0.56 10^3/uL (0.1-0.8); Absolute Neutrophil Count 4.17 10^3/uL (1.2-6.7); Basophils % 0.7; Eosinophils % 1.1; HCT 38.4 % (36.0-46.0); HGB 13.1 g/dL (11.2-15.7); Immature Grans % 0.1; MCH 29.6 pg (27.0-33.0); MCHC 34.1 % (32.0-36.0); MCV 87 fL (80-95); MPV 10.6 fL (8.0-11.0); Monocytes % 7.4; Neutrophils % 54.7; Platelet Count 258 10^3/uL (130-400); RBC 4.42 10^6/uL (3.93-5.22); RDW 11.9 % (11.7-14.6); RDW-SD 38.8 fL; WBC 7.61 10^3/uL (4.4-10.8)
[2023-01-07] MEDS: Normal Saline 1,000 ML 1000 ML IV (19:30)
[2023-01-07 19:44] LABS: ALT 18 U/L (14-59); AST 8 U/L (15-37); Albumin 4.8 g/dL (3.4-5.0); Alkaline Phosphatase 40 U/L (46-116); Anion Gap 11.6 mmol/L (3-11); BUN 11 mg/dL (7-18); Bilirubin, Total 1.6 mg/dL (0.2-1.0); CO2 26.4 mmol/L (21.0-32.0); CREATININE 0.7 mg/dL (0.55-1.02); Calcium 9.1 mg/dL (8.5-10.1); Chloride 106 mmol/L (98-107); Estimated GFR 119.24 (mL/min/1.73m2); Glucose 101 mg/dL (74-106); Potassium 3.3 mmol/L (3.5-5.1); Sodium 144 mmol/L (136-145); Total Protein 7.8 g/dL (6.4-8.2); Troponin I < 50 ng/L (<or=60)
[2023-01-07 20:03] LABS: D-Dimer 171 ng/mlFEU (<500)
[2023-01-07] MEDS: POTASSIUM CHLORIDE 20 MEQ, POTASSIUM CHLORIDE 10 MEQ 30 MEQ PO (20:12)
--- NOTE | 2023-01-07 21:43 | W.ED.GENAD ---
Discharge Plan Disposition Patient Disposition: Home Discharge Details Clinical Impression: Tachycardia Primary Care Provider: Cindy Holman ED Provider: Keaton Murphy Home Meds and New Rx's Prescriptions: Discontinued norethindrone-e.estradiol-iron [.5/30 (28)] 1.5 mg-30 mcg (21)/75 mg (7) tablet 1 tab PO DAILY Qty: 84 1RF sumatriptan succinate [Imitrex] 25 MG tablet 25 mg PO DIRECTED PRN (Reason: Headache) Qty: 8 0RF ondansetron HCl [Zofran] 4 mg tablet 4 mg PO Q8H PRNQty: 10 0RF lorazepam 1 mg tablet 1 mg PO TID PRN Patient Comments: TAKE ONE TABLET BY MOUTH THREE TIMES A DAY - MAXIMUM DAILY DOSE = 3 TABLETS dexmethylphenidate 10 mg tablet 1 mg PO TID PRN PRN Patient Comments: TAKE ONE TABLET BY MOUTH THREE TIMES A DAY dexmethylphenidate 10 mg tablet 10 mg PO TID Patient Comments: TAKE ONE TABLET BY MOUTH THREE TIMES A DAY Discharge Instructions Instructions: Tachycardia (ED) Additional Instructions: Please continue to monitor symptoms and return immediately if you have any new or significant worsening of your condition. As discussed caffeine tobacco and other drugs may increase your heart rate so it is best to reduce or avoid these and any other stimulants including [id number] weight loss meds or certain herbal supplements. Also it is very important that you stay well-hydrated get plenty of rest and eat a well-balanced diet. Please continue to follow-up with your primary care provider and cardiology as previously arranged Referrals: Cindy Holman [Primary Care Provider] - Medical Decision Making Patient presenting to the emergency department for chief complaint of tachycardia. Patient states she has a history of rapid heart rate and just finished use of a Zio patch for evaluation of her tachycardia. Patient has not been placed on any medications to control her heart rate. Patient does state this evening she was smoking marijuana when she noted her heart rate becoming fast. Patient does state slight chest discomfort and nausea along with symptoms. Physical exam shows significant tachycardia otherwise stable patient with initial heart rate vital signs of 131 patient is normotensive mentating well otherwise okay. We will plan on performing labs and EKG. We did attempt modified Valsalva which did lower her heart rate to 109 but then returned into the 130s 140s. Did also give patient IV fluids pending results. I do have some concern for acute drug reaction given that patient was smoking marijuana when this occurred. Please see physician interpretation for full interpretation of EKG but upon my review patient is in sinus tachycardia with no acute ischemic findings. Reviewed patient's labs and CBC is unremarkable, potassium is slightly low at 3.3 which we will orally replete. Anion gap is slightly elevated at 11.6. Patient does have increased bilirubin at 1.6 but low AST and alk phos. Troponin is negative and patient has negative D-dimer. Patient reassessed after fluids and states significant improvement of symptoms. Patient requesting?discharge due to having history of similar symptoms and has had full improvement here in the ED. Did asked patient about Dexmethylphenidate that she takes. Patient states that she has stopped all medications due to the tachycardia. Patient encouraged to continue to monitor symptoms and return immediately for any new or worsening symptoms otherwise to continue follow-up with primary care and cardiology as previously arranged as she has already been worked up for same symptoms. After discussion of diagnosis and plan of care patient has no further needs, questions, or concerns and states clear understanding to return to the emergency department for any worsening symptoms. This documentation was generated using [employer] dictation system, please disregard any oddities of phrase or misspellings. Lab Data Lab results reviewed: Yes I reviewed the patient's lab results. HPI General Mode of arrival: ambulatory. Date/Time Provider Initiated Documentation: 01/07/23 18:50. Limitations to Documentation: no limitations. Information obtained by: patient and old records reviewed. History of Present Illness 32 year old F presents to the emergency department with the chief complaint of Tachycardia, chest pain, described as mild, moderate and similar to prior episodes, and is localized to the chest. Patient started experiencing this minute(s) (15) and it has been constant. No relieving factors improve symptom(s), Other factors that worsen symptoms (Smoking marijuana) . Patient notes no other symptoms.. Patient did receive the following treatments prior to arrival, none Related Data Allergies Allergy/AdvReac Type Severity Reaction Status Date / Time No Known Allergies Allergy Verified 02/21/22 11:15 General Stated Complaint: Chest Pain GIAN: 3 Review of Systems Constitutional Constitutional: Denies chills, Denies fever(s) and Denies malaise Cardiovascular Cardiovascular: Reports as per HPI, Reports chest pain, Denies chest pain with activity, Denies syncope, Reports rapid heart rate, Denies irregular heart rhythm, Denies palpitations and Denies dyspnea Respiratory Respiratory: Denies cough, Denies hemoptysis and Denies dyspnea Gastrointestinal Gastrointestinal: Denies abdominal pain, Denies nausea and Denies vomiting Neurologic Neurologic: Denies syncope Psychiatric Psychiatric: Denies anxiety Endocrine Endocrine: Denies cold intolerance, Denies heat intolerance and Denies palpitations PFSH All Active Problems COVID (Acute) Tachycardia (Acute) Nausea & vomiting (Acute) Neuropathy (Acute) Medical History Migraine Surgical History Adenoidectomy H/O wisdom tooth extraction Tonsillectomy Age 14yrs Family History Father No problems noted. Mother No problems noted. Grandmother Personal history of malignant neoplasm Hyperlipidemia Grandfather No problems noted. Social History Smoking/Tobacco Use Status: Current every day Tobacco Type: cigarettes Smoking risk assessment performed?: Yes Alcohol Intake: current Alcohol Intake frequency: holidays/special occasions only Drug use: Daily Substance use type: marijuana Do you feel safe at home: Yes Do you feel safe in your relationship?: Yes Exam Const General: cooperative, healthy appearing, comfortable, no acute distress, not diaphoretic and not ill appearing Nutritional Appearance: average body habitus Orientation: alert, awake and oriented x3 Limitations: mental status not altered Neck Neck: normal visual inspection, full ROM, trachea midline, supple and no anterior neck swelling Thyroid: thyroid normal Carotids: normal carotid upstroke and no bruits Chest Chest: normal inspection of the chest Resp Effort & Inspection: normal respiratory effort and able to speak in complete sentences Auscultation: clear to auscultation bilaterally Cardio Jugular venous pressure: no JVD Palpation: normal PMI Rate: tachycardic Rhythm: regular rhythm Heart Sounds: S1 normal, S2 normal, no click, no gallops, no murmurs and no rubs Bruits: no abdominal aortic bruits and no carotid bruits Pulses: radial pulses present bilaterally 2+ GI Inspection: normal to inspection Palpation: soft, no aortic enlargement, no pulsatile masses and nontender Auscultation: normal bowel sounds Skin General skin exam: no rashes or lesions noted Neuro General: patient alert, patient awake, patient oriented x3, tone normal and moves all extremities Course Vital Signs Vital signs: Vital Signs Temperature 37.1 C 01/07/23 18:54 Pulse 131 H 01/07/23 18:54 Respiratory Rate 21 01/07/23 18:54 Blood Pressure 133/69 01/07/23 18:54 Pulse Oximetry 99 01/07/23 18:54 Temperature 37.1 C 01/07/23 18:54 Pulse 72 01/07/23 21:16 Pulse 87 01/07/23 21:20 Respiratory Rate 22 01/07/23 21:20 Respiratory Effort Short of Breath 01/07/23 18:59 Respiratory Depth Normal 01/07/23 18:59 Respiratory Pattern Normal 01/07/23 18:59 Blood Pressure 97/56 L 01/07/23 21:16 Blood Pressure Mean 65 01/07/23 21:16 Pulse Oximetry 97 01/07/23 21:20 Oxygen Delivery Method Room Air 01/07/23 18:54 Oxygen Flow Rate 0 01/07/23 18:54 Pain Level 7 01/07/23 18:54 Lab/Test Results Lab/Test Results: Laboratory Tests Range/Units 01/07/23 01/07/23 01/07/23 19:19 19:19 19:19 WBC (4.4-10.8) 10^3/uL 7.61 RBC (3.93-5.22) 10^6/uL 4.42 Hgb (11.2-15.7) g/dL 13.1 Hct (36.0-46.0) % 38.4 MCV (80-95) fL 87 MCH (27.0-33.0) pg 29.6 MCHC (32.0-36.0) % 34.1 RDW (11.7-14.6) % 11.9 Plt Count (130-400) 10^3/uL 258 MPV (8.0-11.0) fL 10.6 Immature Gran % 0.1 Neutrophils % 54.7 Lymphocytes % 36.0 Monocytes % 7.4 Eosinophils % 1.1 Basophils % 0.7 Nucleated RBC % (0.0-0.3) % 0.0 Absolute Neutrophils (1.2-6.7) 10^3/uL 4.17 Absolute Lymphocytes (1.2-3.4) 10^3/uL 2.74 Absolute Monocytes (0.1-0.8) 10^3/uL 0.56 Absolute Eosinophils (0.0-0.7) 10^3/uL 0.08 Absolute Basophils (0.0-0.2) 10^3/uL 0.05 D-Dimer (<500) ng/mlFEU 171 Sodium (136-145) mmol/L 144 Potassium (3.5-5.1) mmol/L 3.3 L Chloride (98-107) mmol/L 106 Carbon Dioxide (21.0-32.0) mmol/L 26.4 Anion Gap (3-11) mmol/L 11.6 H BUN (7-18) mg/dL 11 Creatinine (0.55-1.02) mg/dL 0.7 Est GFR (CKD-EPI 2020) (mL/min/1.73m2) 119.24 Glucose (74-106) mg/dL 101 Calcium (8.5-10.1) mg/dL 9.1 Magnesium (1.8-2.4) mg/dL 2.0 Total Bilirubin (0.2-1.0) mg/dL 1.6 H AST (15-37) U/L 8 L ALT (14-59) U/L 18 Alkaline Phosphatase (46-116) U/L 40 L Troponin I (<or=60) ng/L < 50 Total Protein (6.4-8.2) g/dL 7.8 Albumin (3.4-5.0) g/dL 4.8 PAWSS Have you Been Recently Intoxicated or Drunk Within the Last 30 days?: No Have you Ever Experienced Previous Episodes of Alcohol Withdrawal?: No Have you ever Experienced Withdrawal Seizures?: No Have you ever Experienced Delirium Tremens(DT)s?: No Have you ever undergone Alcohol Rehabilitation Treatment (i.e, inpt ot outpatient treatment programs)?: No Have you ever Experienced Blackouts?: No Have you ever Combined Alcohol with other Downers within the last 90 days?: No Have you ever Combined Alcohol with any other Substance of Abuse during the last 90 days?: No Positive Blood Alcohol level on Presentation? [PCS.BAL]: No Evidence of Increased Autonomic Activity (i.e. HR>120, tremor, sweating, agitation, nausea)?: No Result: 0
== END 2023-01-07 22:01 | disposition home or self-care (01) ==
PROVIDERS: Emergency Provider Nurse Practitioner Family; PCP Nurse Practitioner Family
DX: R00.0 Tachycardia, unspecified (principal); R07.9 Chest pain, unspecified; E87.6 Hypokalemia
CPT/HCPCS: 80053; 93005; 96360; 96361; 99284; 83735; 84484; 85025; 85379; 93010

== ENCOUNTER 2023-01-14 06:53 | Emergency (ER) | payer MEDICAID, SELFPAY ==
[2023-01-14 06:58] VITALS: BP 116/63; PULSE 94; RESP 14; TEMP 36.8; O2SAT 100
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
== END 2023-01-14 07:57 | disposition home or self-care (01) ==
PROVIDERS: Emergency Provider Student in an Organized Health Care Education/Training Program; PCP Nurse Practitioner Family
DX: L73.9 Follicular disorder, unspecified (principal); N76.89 Other specified inflammation of vagina and vulva
CPT/HCPCS: 99283

== ENCOUNTER 2023-02-08 19:25 | Outpatient (REF) | payer MEDICAID, SELFPAY | END 2023-02-08 19:26 | disposition home or self-care (01) | LOC: LBN 19:25 | PROVIDERS: PCP Nurse Practitioner Family; Visit Provider Nurse Practitioner Family | DX: N30.01 Acute cystitis with hematuria (principal) | CPT/HCPCS: 87077; 87086; 87186 ==

== ENCOUNTER 2023-03-02 18:57 | Outpatient (REF) | payer MEDICAID, SELFPAY ==
[2023-03-02 19:13] LABS: ESR 1 mm/hr (0-20)
[2023-03-02 19:20] LABS: Bilirubin Negative (Negative); Blood Negative (Negative); Clarity Clear (Clear); Glucose Negative (Negative); Ketones Negative (Negative); Leukocyte Esterase Negative (Negative); Nitrite Negative (Negative); Specific Gravity 1.015 (1.005-1.025)
[2023-03-02 19:32] LABS: ALT 14 U/L (14-59); AST 17 U/L (15-37); Albumin 4.7 g/dL (3.4-5.0); Alkaline Phosphatase 37 U/L (46-116); Anion Gap 10.3 mmol/L (3-11); BUN 13 mg/dL (7-18); Bilirubin, Total 2.5 mg/dL (0.2-1.0); CO2 26.7 mmol/L (21.0-32.0); CREATININE 0.7 mg/dL (0.55-1.02); Calcium 9.4 mg/dL (8.5-10.1); Chloride 105 mmol/L (98-107); Estimated GFR 119.24 (mL/min/1.73m2); Glucose 90 mg/dL (74-106); Potassium 3.8 mmol/L (3.5-5.1); Sodium 142 mmol/L (136-145); Total Protein 7.5 g/dL (6.4-8.2)
[2023-03-04 11:11] LABS: Lyme Ab w Rflx to Lyme Confirm Negative (Negative)
[2023-03-05 23:00] LABS: Anaplasma phagocytophilum Negative (Negative); B. miyamotoi PCR Negative (Negative); Babesia divergens/MO-1 Negative (Negative); Babesia duncani Negative (Negative); Babesia microti Negative (Negative); Ehrlichia chaffeensis Negative (Negative); Ehrlichia ewingii/canis Negative (Negative); Ehrlichia muris eauclairensis Negative (Negative)
== END 2023-03-02 18:58 | disposition home or self-care (01) ==
LOC: NCHCN 18:57
PROVIDERS: PCP Nurse Practitioner Family; Visit Provider Physician Assistant Medical
DX: R42 Dizziness and giddiness (principal); R53.83 Other fatigue
CPT/HCPCS: 80053; 85652; 87798; 81003; 86618

== ENCOUNTER 2023-03-19 09:39 | Outpatient (REF) | payer MEDICAID, SELFPAY ==
[2023-03-19 17:28] LABS: FREE T4 0.97 ng/dL (0.76-1.46); PHOSPHORUS 3.2 mg/dL (2.6-4.7)
[2023-03-19 22:22] LABS: Parathyroid Hormone,Intact 51 pg/mL (19-88)
== END 2023-03-19 09:40 | disposition home or self-care (01) ==
LOC: NCHCN 09:39
PROVIDERS: PCP Nurse Practitioner Family; Visit Provider Nurse Practitioner Family
DX: R42 Dizziness and giddiness (principal); R00.0 Tachycardia, unspecified; R53.83 Other fatigue; R35.89 Other polyuria
CPT/HCPCS: 83970; 84100; 84439; 84443

== ENCOUNTER 2023-07-21 12:57 | Emergency (ER) | payer OTHER, MEDICAID, SELFPAY ==
[2023-07-21 12:56] VITALS: BP 109/72; PULSE 111; RESP 18; TEMP 36.9; O2SAT 98
--- NOTE | 2023-07-21 13:00 | DI.RAD_ITS ---
Exam(s) XR SHOULDER LT COMPLETE 2+V EXAM: XR SHOULDER LT COMPLETE 2+V CLINICAL HISTORY: L shoulder pain. TECHNIQUE: 2D digital imaging was performed. Five views. COMPARISON: No exams were available for comparison FINDINGS: BONES: No acute fracture is present. No bony destructive lesion is seen. JOINTS: No dislocation present. AC joint not widened SOFT TISSUE: Normal. IMPRESSION: Unremarkable radiographs of the left shoulder. DATA REPOSITORY: RADIATION DOSE DELIVERED:
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
[2023-07-21 13:07] VITALS: O2SAT 100
[2023-07-21 13:10] VITALS: O2SAT 97
[2023-07-21 13:16] VITALS: BP 113/67; PULSE 104
[2023-07-21 13:20] VITALS: O2SAT 99
[2023-07-21] MEDS: Ketorolac 10 MG TAB PO (13:21)
[2023-07-21] MEDS: Acetaminophen 500 MG TAB 1000 MG PO (13:22)
[2023-07-21] MEDS: Cyclobenzaprine 10 MG TAB, 3 TABS/BTL PO (14:19)
== END 2023-07-21 14:21 | disposition home or self-care (01) ==
LOC: ER 14:32
PROVIDERS: Emergency Provider Physician Assistant; PCP Nurse Practitioner Family
DX: M25.512 Pain in left shoulder (principal); S16.1XXA Strain of muscle, fascia and tendon at neck level, initial encounter; V43.52XA Car driver injured in collision with other type car in traffic accident, initial encounter
CPT/HCPCS: 99283; 73030

== ENCOUNTER 2023-08-13 18:20 | Outpatient (REF) | payer MEDICAID, SELFPAY ==
[2023-08-13 21:21] LABS: Bacteria Moderate HPF (Negative); Epithelial Cells Few HPF (Negative); RBC 0-2 HPF (0-2)
[2023-08-13 21:22] LABS: C & S Indicated? C&S Done As Ordered; Casts Negative LPF (Negative); Crystals Negative HPF (Negative); Mucus Negative (Negative)
[2023-08-15 12:12] LABS: Chlamydia Result Negative (Negative); GC Result Negative (Negative)
== END 2023-08-13 18:21 | disposition home or self-care (01) ==
LOC: LBN 18:20
PROVIDERS: PCP Nurse Practitioner Family; Visit Provider Physician Assistant Medical
DX: R82.90 Unspecified abnormal findings in urine (principal); B96.89 Other specified bacterial agents as the cause of diseases classified elsewhere
CPT/HCPCS: 87077; 87491; 87591; 81015; 87086; 87186; 87480; 87510; 87660

== ENCOUNTER 2023-11-27 02:36 | Emergency (ER) | payer MEDICAID, SELFPAY ==
[2023-11-27 02:43] VITALS: BP 137/65; PULSE 85; RESP 15; TEMP 36.6; O2SAT 98
[2023-11-27 02:56] LABS: Lactate 0.8 mmol/L (0.6-1.4)
[2023-11-27 02:58] LABS: Bilirubin Negative (Negative); Blood Trace-intact (Negative); Clarity Clear (Clear); Glucose Negative (Negative); Ketones 40 mg/dL (Negative); Leukocyte Esterase Negative (Negative); Nitrite Negative (Negative); Urobilinogen 0.2 mg/dL (Up to 0.2)
[2023-11-27 03:03] LABS: Bacteria Rare HPF (Negative); C & S Indicated? No; Casts Negative LPF (Negative); Crystals Negative HPF (Negative); Epithelial Cells Rare HPF (Negative); Mucus Negative (Negative); RBC 0-2 HPF (0-2); WBC Negative HPF (0-5)
[2023-11-27 03:14] LABS: ALT 17 U/L (14-59); AST 8 U/L (15-37); Albumin 4.7 g/dL (3.4-5.0); Alkaline Phosphatase 42 U/L (46-116); Anion Gap 10.2 mmol/L (3-11); BUN 9 mg/dL (7-18); CO2 27.8 mmol/L (21.0-32.0); CREATININE 0.6 mg/dL (0.55-1.02); Calcium 8.9 mg/dL (8.5-10.1); Chloride 103 mmol/L (98-107); Estimated GFR 122.99 (mL/min/1.73m2); Glucose 109 mg/dL (74-106); Lipase 34 U/L (16-77); Potassium 3.2 mmol/L (3.5-5.1); Sodium 141 mmol/L (136-145); Total Protein 7.7 g/dL (6.4-8.2)
[2023-11-27 03:15] LABS: Abs Immature Grans 0.03 10^3/uL (0.0-0.06); Absolute Basophil Count 0.05 10^3/uL (0.0-0.2); Absolute Eosinophil Count 0.06 10^3/uL (0.0-0.7); Absolute Lymphocyte Count 2.18 10^3/uL (1.2-3.4); Absolute Monocyte Count 0.49 10^3/uL (0.1-0.8); Absolute Neutrophil Count 6.83 10^3/uL (1.2-6.7); Basophils % 0.5 %; Eosinophils % 0.6 %; HCT 40.8 % (36.0-46.0); HGB 13.9 g/dL (11.2-15.7); Immature Grans % 0.3 %; Lymphocytes % 22.6 %; MCH 30.8 pg (27.0-33.0); MCHC 34.1 % (32.0-36.0); MCV 91 fL (80-95); MPV 11.1 fL (8.0-11.0); Monocytes % 5.1 %; Neutrophils % 70.9 %; Platelet Count 290 10^3/uL (130-400); RBC 4.51 10^6/uL (3.93-5.22); RDW 11.9 % (11.7-14.6); RDW-SD 39.5 fL; WBC 9.64 10^3/uL (4.4-10.8)
--- NOTE | 2023-11-27 03:30 | DI.CT_ITS ---
Exam(s) CT ABDOMEN PELVIS W EXAM: CT ABDOMEN PELVIS W CLINICAL HISTORY: epigastric abd pain. TECHNIQUE: Imaging Protocol: Axial computed tomography images with coronal and sagittal reformatted images were created and reviewed CONTRAST MATERIAL: Intravenous: Omnipaque 350 Contrast volume:100 ml Oral: no COMPARISON: No exams were available for comparison FINDINGS: ABDOMEN and PELVIS: Exam mildly limited by motion. Lung Bases: No acute findings. Liver: Normal density. No suspicious mass. Gallbladder and biliary tract: No radiodense calculus. No biliary dilation. Pancreas: Normal density. No abnormal calcifications or inflammatory process. No evidence of mass. Spleen: Normal. Kidneys: Normal size, contour and axis. No radiodense stones. No obstructive uropathy. No suspicious masses seen. Adrenal glands: No masses seen. Vasculature: Abdominal aorta non-dilated. Soft tissues: Unremarkable. Bladder: No gross wall thickening. No calculi.No focal mass. Bowel: No obstruction. Stomach unremarkable. No bowel wall thickening. Appendix normal. Peritoneal cavity: Small amount of fluid in low pelvis. Findings could represent ruptured ovarian cy st. No focal collection. No mesenteric inflammatory response. Bones: Unremarkable for age. Reproductive organs: Bilateral follicles noted. Lymph nodes: No pathologically enlarged lymph nodes. IMPRESSION:: Small amount of pelvic fluid could indicate ruptured ovarian cyst. RADIATION DOSE DELIVERED: Total DLP DATA REPOSITORY: All CT scans at this facility are submitted to the National Radiology Data Registry (NRDR) Dose Index Registry (DIR) with the [employer] (A[employer]). RADIATION OPTIMIZATION: All CT scans at this facility use at least one of these dose optimization te chniques: automated exposure control; mA and/or kV adjustment per patient size (includes targeted exa ms where dose is matched to clinical indication); or iterative reconstruction.
--- NOTE | 2023-11-27 03:34 | ED.GENADUL_ITS ---
Discharge Plan Disposition Patient Disposition: Home Condition: Good Discharge Details Clinical Impression: Abdominal pain Primary Care Provider: Cindy Holman ED Provider: Mary Craven Home Meds and New Rx's Prescriptions: New ondansetron 4 mg tablet,disintegrating 4 mg PO Q8H PRNQty: 30 0RF Continued sumatriptan succinate 50 mg tablet 50 mg PO ONCE PRN norethindrone (contraceptive) 0.35 mg tablet 0.35 mg PO DAILY Qty: 84 3RF hydrocortisone 1 % cream 1 applic topical BID Qty: 28.35 0RF acetylcysteine 600 mg capsule 600 mg PO TID Patient Comments: TAKE 2 CAPSULES BY MOUTH IN THE MORNING AND 1-2 CAPSULES IN THE AFTERNOON OR EARLY EVENING Discharge Instructions Instructions: Abdominal Pain (ED) Additional Instructions: Call your primary care doctor on Wednesday to schedule an appointment for Wednesday or Wednesday to followup on your visit here. Ondanestron up to every 8 hours for nausea. Return tot he emergency department for new or worsening symptoms including new/different/worse pain, inability to keep down fluids, difficulty breathing, or if you have any other concerns. Referrals: Cindy Holman [Primary Care Provider] - [facility] General Mode of arrival: ambulatory . Date/Time Provider Initiated Documentation: 11/27/23 02:47 . Limitations to Documentation: no limitations . Information obtained by: patient . HPI Narrative: 33yo F with reported history of tachycardia and hypercalcemia, is being worked up by nephrology with no known diagnosis at this time, presenting for 3 weeks of intermittent upper abdominal pain. Pain is epigastric or periumbilical, usually mild to moderate though waxes and wanes in severity, and has been worsening in frequency and intensity. Dull, achey, unrelieved by home tylenol. Tonight up 8/10, constant for the last several hours, with associated nausea. Has decreased since earlier, now mild and tolerable. Currently nausea is the most bothersome symptom. No vomiting, constipation, or diarrhea. No bloody stool or melena. No lower abdominal pain, dysuria, hematuria, or vaginal discharge. Does not seem to be related in timing to food intake. SHe is otherwise in her usual state of health with no fevers, chills, rash, chest pain, shortness of breath, or other concerns. Related Data Home Medications Medication Instructions Recorded Confirmed norethindrone (contraceptive) 0.35 0.35 mg PO DAILY #84 tabs 01/12/23 11/27/23 mg tablet sumatriptan succinate 50 mg tablet 50 mg PO ONCE PRN 01/12/23 11/27/23 hydrocortisone 1 % topical cream 1 applic topical BID #28.35 grams 01/14/23 11/27/23 acetylcysteine 600 mg capsule 600 mg PO TID 07/21/23 11/27/23 ondansetron 4 mg disintegrating 4 mg PO Q8H PRN #30 tabs 11/27/23 tablet Previous Rx's Medication Instructions Recorded norethindrone (contraceptive) 0.35 0.35 mg PO DAILY #84 tabs 01/12/23 mg tablet hydrocortisone 1 % topical cream 1 applic topical BID #28.35 grams 01/14/23 ondansetron 4 mg disintegrating 4 mg PO Q8H PRN #30 tabs 11/27/23 tablet Allergies Allergy/AdvReac Type Severity Reaction Status Date / Time No Known Allergies Allergy Verified 07/21/23 13:08 General Stated Complaint: Abd Prob GIAN: 4 Review of Systems Narrative: see hpi Exam Narrative Exam Narrative: General: Alert, well appearing, well nourished, in no acute distress. Head: Normocephalic, atraumatic Neck: Trachea midline, ?Neck supple. ENT: ?MMM.? Cardiac: ?RRR, no murmurs appreciated Resp: No respiratory distress. CTAB. Abd: ?Soft, non-distended, mild epigastric tenderness with no rebound or guarding. Negative Freitas's. : ?No suprapubic tenderness. No CVA tenderness. Extremities: ?No deformities.? No peripheral edema. Neurologic: GCS 15. ? Moves all extremities freely against gravity Course Vital Signs Vital signs: Vital Signs Temperature 36.6 C 11/27/23 02:43 Pulse 85 11/27/23 02:43 Respiratory Rate 15 11/27/23 02:43 Blood Pressure 137/65 11/27/23 02:43 Pulse Oximetry 98 11/27/23 02:43 Temperature 36.6 C 11/27/23 02:43 Temperature Source Tympanic 11/27/23 02:43 Pulse 85 11/27/23 02:43 Respiratory Rate 15 05/04/24 02:43 Respiratory Effort Normal 11/27/23 02:46 Blood Pressure 137/65 11/27/23 02:43 Pulse Oximetry 98 11/27/23 02:43 Oxygen Delivery Method Room Air 11/27/23 02:43 Oxygen Flow Rate 0 11/27/23 02:43 Pain Level 8 11/27/23 02:43 Lab/Test Results Lab/Test Results: Laboratory Tests Range/Units 11/27/23 11/27/23 02:46 02:47 WBC (4.4-10.8) 10^3/uL 9.64 RBC (3.93-5.22) 10^6/uL 4.51 Hgb (11.2-15.7) g/dL 13.9 Hct (36.0-46.0) % 40.8 MCV (80-95) fL 91 MCH (27.0-33.0) pg 30.8 MCHC (32.0-36.0) % 34.1 RDW (11.7-14.6) % 11.9 Plt Count (130-400) 10^3/uL 290 MPV (8.0-11.0) fL 11.1 H Immature Gran % % 0.3 Neutrophils % % 70.9 Lymphocytes % % 22.6 Monocytes % % 5.1 Eosinophils % % 0.6 Basophils % % 0.5 Nucleated RBC % (0.0-0.3) % 0.0 Absolute Neutrophils (1.2-6.7) 10^3/uL 6.83 H Absolute Lymphocytes (1.2-3.4) 10^3/uL 2.18 Absolute Monocytes (0.1-0.8) 10^3/uL 0.49 Absolute Eosinophils (0.0-0.7) 10^3/uL 0.06 Absolute Basophils (0.0-0.2) 10^3/uL 0.05 VBG Lactate (0.6-1.4) mmol/L 0.8 Sodium (136-145) mmol/L 141 Potassium (3.5-5.1) mmol/L 3.2 L Chloride (98-107) mmol/L 103 Carbon Dioxide (21.0-32.0) mmol/L 27.8 Anion Gap (3-11) mmol/L 10.2 BUN (7-18) mg/dL 9 Creatinine (0.55-1.02) mg/dL 0.6 Est GFR (CKD-EPI 2020) (mL/min/1.73m2) 122.99 Glucose (74-106) mg/dL 109 H Calcium (8.5-10.1) mg/dL 8.9 Total Bilirubin (0.2-1.0) mg/dL 2.0 H AST (15-37) U/L 8 L ALT (14-59) U/L 17 Alkaline Phosphatase (46-116) U/L 42 L Total Protein (6.4-8.2) g/dL 7.7 Albumin (3.4-5.0) g/dL 4.7 Lipase (16-77) U/L 34 Urine Color (Yellow) Yellow Urine Clarity (Clear) Clear Urine pH (5-8) 6.0 Ur Specific [place] (1.005-1.025) 1.020 Urine Protein (Neg-Trace) mg/dL Negative Urine Ketones (Negative) mg/dL 40 H Urine Blood (Negative) Trace-intact H Urine Nitrite (Negative) Negative Urine Bilirubin (Negative) Negative Urine Urobilinogen (Up to 0.2) mg/dL 0.2 Ur Leukocyte Esterase (Negative) Negative Urine RBC (0-2) HPF 0-2 Urine WBC (0-5) HPF Negative Ur Epithelial Cells (Negative) HPF Rare Urine Crystals (Negative) HPF Negative Urine Bacteria (Negative) HPF Rare Urine Casts (Negative) LPF Negative Urine Mucus (Negative) Negative Ur Culture Indicated? No Urine Glucose (Negative) mg/dL Negative POC- Test(urine) Negative Medical Decision Making 33yo F with reported history of tachycardia and hypercalcemia, is being worked up by nephrology with no known diagnosis at this time, presenting for 3 weeks of intermittent upper abdominal pain. Pain is epigastric or periumbilical, usually mild to moderate though waxes and wanes in severity, and has been worsening in frequency and intensity. Dull, achey, unrelieved by home tylenol. Associated nausea, no vomiting. Vital signs reassuring on arrival. Benign abdominal exam, very mild epigastric tenderness. Reports minimal pain at this time. Will give IV tylenol for pain, zofran for nausea; avoiding toradol for now as some suspicion for peptic ulcer. Labs reviewed as below,: -CBC reassuring with no leukocytosis or anemia, -CMP with mild hyokalemia at 3.2 oral replacement ordered (K was 3.3 on most prior labs here), bili mildly elevated 2.0 with no elevations in AST, ALT, or ALP. Not obstructive pattern. On 03/02/23 bili was 2.5 (most recent available). She does not think she is being evaluated for this but does report that she has a known hemangioma on her liver. -Lipase normal (not pancreaittis) -Lactate normal -Troponin negative -UA not suggestive of infection. Preg negative. EKG with no ST segment or T wave abnoramlatities to suggest occlusive IN. Slight ST changes in II, III, aVF, no CO depressions, not particularly suggestive of pericarditis and pain is not positional, no fricturion rub appreciates. On reassessment she reports her pain has worsened again, nausea has been unaffected by zofran. Given 2mg IV morphine, will try reglan for nausea as well as GI cocktail and carafate. CT independently reviewed, no bowel obstruction of dilated CBD on my view, radiology read below notes moderate complex pelvic ascities consistent with ruptured adenxal cyst. Patient with no lower abdominal pain and no lower abdominal tenderness on exam, this is unlikely to related to her symptoms today and can be worked up on a non-emergent basis. I am not concerned for ovarian torsion, hemodynamically significant hemmoraghic cyst, ectopic , or other acute pelvic pathology; would not transfer for emergent pelvic ultrasound. PO challenged; small amount of emesis, did keep most down. I am not sure what is causing her symptoms; biliary colic possible although pattern of pain is atypical. Workup not concerning for cholecystitis/choledoco/cholangitis; would nto transfer emergently for ultrasound. Cardiac workup reassuring. CT scan unrevealing. Peptic ulcer or symptomatic liver hemangioma are possible. Regardless, with reassuring workup here and normal vital signs, appropriate for PCP followup for remaining workup. Discussed with patient results of workup thus far and possible next steps; offered observation stay for symptom control, IV antiemetics, fluids, given her persistent vomiting. She declined and would prefer to go home which is not unreasonable. I strongly encouraged her to return should her symptoms worsen or should she change her mind. Discharged home with presciprtion for zofran; discharge instructions and return precautions were reviewed with patient who verbalized understanding. All questions were answered and she is in full agreement with the plan. Medical Records Medical records reviewed: Yes I reviewed the patient's medical records. Imaging Data Radiologic Study: Imaging: CT Scan Radiologist's impression: IMPRESSION: Suspicion of right adnexal ruptured cyst given the above findings. Recommend pelvic ultrasound for further assessment Lab Data Lab results reviewed: Yes I reviewed the patient's lab results. Labs: Laboratory Tests Range/Units 11/27/23 11/27/23 02:46 02:47 WBC (4.4-10.8) 10^3/uL 9.64 RBC (3.93-5.22) 10^6/uL 4.51 Hgb (11.2-15.7) g/dL 13.9 Hct (36.0-46.0) % 40.8 MCV (80-95) fL 91 MCH (27.0-33.0) pg 30.8 MCHC (32.0-36.0) % 34.1 RDW (11.7-14.6) % 11.9 Plt Count (130-400) 10^3/uL 290 MPV (8.0-11.0) fL 11.1 H Immature Gran % % 0.3 Neutrophils % % 70.9 Lymphocytes % % 22.6 Monocytes % % 5.1 Eosinophils % % 0.6 Basophils % % 0.5 Nucleated RBC % (0.0-0.3) % 0.0 Absolute Neutrophils (1.2-6.7) 10^3/uL 6.83 H Absolute Lymphocytes (1.2-3.4) 10^3/uL 2.18 Absolute Monocytes (0.1-0.8) 10^3/uL 0.49 Absolute Eosinophils (0.0-0.7) 10^3/uL 0.06 Absolute Basophils (0.0-0.2) 10^3/uL 0.05 VBG Lactate (0.6-1.4) mmol/L 0.8 Sodium (136-145) mmol/L 141 Potassium (3.5-5.1) mmol/L 3.2 L Chloride (98-107) mmol/L 103 Carbon Dioxide (21.0-32.0) mmol/L 27.8 Anion Gap (3-11) mmol/L 10.2 BUN (7-18) mg/dL 9 Creatinine (0.55-1.02) mg/dL 0.6 Est GFR (CKD-EPI 2020) (mL/min/1.73m2) 122.99 Glucose (74-106) mg/dL 109 H Calcium (8.5-10.1) mg/dL 8.9 Total Bilirubin (0.2-1.0) mg/dL 2.0 H AST (15-37) U/L 8 L ALT (14-59) U/L 17 Alkaline Phosphatase (46-116) U/L 42 L Total Protein (6.4-8.2) g/dL 7.7 Albumin (3.4-5.0) g/dL 4.7 Lipase (16-77) U/L 34 Beta HCG, Quant (1-3) mIU/mL < 1 L Urine Color (Yellow) Yellow Urine Clarity (Clear) Clear Urine pH (5-8) 6.0 Ur Specific [place] (1.005-1.025) 1.020 Urine Protein (Neg-Trace) mg/dL Negative Urine Ketones (Negative) mg/dL 40 H Urine Blood (Negative) Trace-intact H Urine Nitrite (Negative) Negative Urine Bilirubin (Negative) Negative Urine Urobilinogen (Up to 0.2) mg/dL 0.2 Ur Leukocyte Esterase (Negative) Negative Urine RBC (0-2) HPF 0-2 Urine WBC (0-5) HPF Negative Ur Epithelial Cells (Negative) HPF Rare Urine Crystals (Negative) HPF Negative Urine Bacteria (Negative) HPF Rare Urine Casts (Negative) LPF Negative Urine Mucus (Negative) Negative Ur Culture Indicated? No Urine Glucose (Negative) mg/dL Negative Quality:SDOH Health Related Social Needs: No Data to Display PFSH All Active Problems (Updated 11/27/23 @ 06:23 by Mary Craven MD) Abdominal pain (Acute) Contraception (Acute) POP COVID (Acute) Nausea & vomiting (Acute) Neuropathy (Acute) Medical History Anxiety (10/01/14) Depression (10/01/14) Migraine Surgical History Adenoidectomy H/O wisdom tooth extraction Tonsillectomy Age 14yrs Family History Father No problems noted. Mother No problems noted. Grandmother Personal history of malignant neoplasm Hyperlipidemia Grandfather No problems noted. Social History Smoking/Tobacco Use Status: Current every day Tobacco Type: cigarettes Smoking risk assessment performed?: Yes Alcohol Intake: current Alcohol Intake frequency: holidays/special occasions only Drug use: Daily Substance use type: marijuana Housing: other Do you feel safe at home: Yes Do you feel safe in your relationship?: Yes History History 1 Para 1 Hx # Term Pregnancies Multiple births Hx # Pregnancies Ectopic pregnancies AB induced Hx Number of Living Children AB spontaneous
[2023-11-27 03:36] LABS: HCG Quant, Pregnancy < 1 mIU/mL (1-3)
[2023-11-27] MEDS: Ondansetron 4 MG/2 ML VIAL IVP (03:45)
[2023-11-27] MEDS: Normal Saline - Diluent 50 ML VIAL IJ (04:14)
[2023-11-27] MEDS: Omnipaque 350 MG/ML 100 ML BTL IJ (04:14)
[2023-11-27] MEDS: ACETAMINOPHEN 1,000 MG/100 ML BTL 400 MG IVPB (04:51)
--- NOTE | 2023-11-27 05:07 | DI.VRAD_ITS ---
PROCEDURE INFORMATION: Exam: CT Abdomen And Pelvis With Contrast Exam date and time: 11/27/2023 4:06 AM Age: 33 years old Clinical indication: Abdominal pain; Epigastric; Additional info: Epigastric abd pain TECHNIQUE: Imaging protocol: Computed tomography of the abdomen and pelvis with contrast. Contrast material: OMNI 350; Contrast volume: 100 ml; Contrast route: INTRAVENOUS (IV); COMPARISON: No relevant prior studies available. FINDINGS: Lungs: Lung bases are clear as visualized. Heart: Base of heart is unremarkable as visualized. Liver: Subcentimeter hypodensity too small to characterize within the right hepatic lobe (series 4, image 23). Statistically likely to represent entity. Gallbladder and bile ducts: Normal. No calcified stones. No ductal dilation. Pancreas: Normal. No ductal dilation. Spleen: Splenule is noted. Adrenal glands: Normal. No mass. Kidneys and ureters: Normal. No hydronephrosis. Stomach and bowel: Unremarkable. No obstruction. No mucosal thickening. Appendix: No evidence of appendicitis. Intraperitoneal space: Moderate amount complex pelvic ascites is noted, centered about the right lateral aspect. Vasculature: Pelvic phleboliths are noted. Lymph nodes: Unremarkable. No enlarged lymph nodes. Urinary bladder: Unremarkable as visualized. Reproductive: Multiple hypodensities within the bilateral ovaries, likely physiologic cysts. Bones/joints: Unremarkable. No acute fracture. Soft tissues: Unremarkable. IMPRESSION: Suspicion of right adnexal ruptured cyst given the above findings. Recommend pelvic ultrasound for further assessment. Dictated and Authenticated by: Hansel Prado MD. Ordering:TORRES Hernandez MD
--- NOTE | 2023-11-27 05:15 | RT.EKG_ITS ---
APPROVED REPORT Exam: Resting ECG Reason for Exam: epigastric pain Patient Location: E HR:55 bpm ECG Measurements Heart Rate 55 AXIS LA 158 P 60 QRSd 83 QRS 68 QT 414 T 58 QTc 397 Conclusion Sinus bradycardia...rate< [address] segment or t wave abnormalities to suggest occlusive mi
[2023-11-27] MEDS: Potassium Chloride Liquid 20 MEQ PKT 40 MEQ PO (05:31)
[2023-11-27] MEDS: Sucralfate 1 GM TAB PO (05:33)
[2023-11-27] MEDS: Metoclopramide 10 MG/2 ML VIAL IVP (05:54)
[2023-11-27] MEDS: MORPHine 10 MG/ML VIAL 2 MG IVP (05:55)
[2023-11-27 06:08] LABS: Troponin I < 50 ng/L (< or =60)
[2023-11-27 06:39] VITALS: BP 105/66; PULSE 62; RESP 14; TEMP 36.6; O2SAT 99
[2023-11-27] MEDS: Ondansetron O.D.T. 4 MG TABEF, 3 TABS/BTL PO (07:13)
== END 2023-11-27 07:24 | disposition home or self-care (01) ==
PROVIDERS: Emergency Provider Student in an Organized Health Care Education/Training Program; PCP Nurse Practitioner Family
DX: R10.13 Epigastric pain (principal); R11.2 Nausea with vomiting, unspecified; E87.6 Hypokalemia
CPT/HCPCS: 80053; 81025; 83690; 93005; 96374; 96375; 99285; 74177; 81003; 81015; 83605; 84484; 84702; 85025; 93010; 99284; J0131; J2270; J2405; J2765; J3490

== ENCOUNTER 2023-12-15 08:35 | Outpatient (CLI) | payer MEDICAID, SELFPAY ==
[2023-12-15 09:21] LABS: Anion Gap 9.6 mmol/L (3-11); BUN 14 mg/dL (7-18); CO2 27.4 mmol/L (21.0-32.0); CREATININE 0.6 mg/dL (0.55-1.02); Calcium 9.1 mg/dL (8.5-10.1); Chloride 105 mmol/L (98-107); Estimated GFR 122.99 (mL/min/1.73m2); Glucose 92 mg/dL (74-106); Potassium 3.4 mmol/L (3.5-5.1); Sodium 142 mmol/L (136-145)
[2023-12-15 10:07] LABS: Bilirubin, Direct 0.3 mg/dL (0.0-0.2); Bilirubin, Total 1.2 mg/dL (0.2-1.0); LDH 105 U/L (81-234)
[2023-12-16 08:58] LABS: Haptoglobin 106 mg/dL (32-197)
== END 2023-12-15 08:36 | disposition home or self-care (01) ==
LOC: LBO 08:35
PROVIDERS: PCP Nurse Practitioner Family; Visit Provider Internal Medicine Nephrology
DX: E87.6 Hypokalemia (principal); I95.0 Idiopathic hypotension; R00.2 Palpitations
CPT/HCPCS: 36415; 80048; 82533; 82247; 82248; 83010; 83615; 85045

== ENCOUNTER 2023-12-21 15:48 | Outpatient (REF) | payer MEDICAID, SELFPAY ==
[2023-12-22 14:23] LABS: Chlamydia Result Negative (Negative); GC Result Negative (Negative)
== END 2023-12-21 15:49 | disposition home or self-care (01) ==
LOC: LBN 15:48
PROVIDERS: PCP Nurse Practitioner Family; Visit Provider Nurse Practitioner Women's Health
DX: N92.6 Irregular menstruation, unspecified (principal); Z11.3 Encounter for screening for infections with a predominantly sexual mode of transmission
CPT/HCPCS: 87491; 87591; 87480; 87510; 87660

== ENCOUNTER 2023-12-22 05:10 | Outpatient (CLI) | payer MEDICAID, SELFPAY ==
[2023-12-22 11:50] LABS: TSH (W/Ref FT4) 1.32 uIU/mL (0.36-3.74)
== END 2023-12-22 05:11 | disposition home or self-care (01) ==
LOC: LBO 05:12
PROVIDERS: PCP Nurse Practitioner Family; Visit Provider Nurse Practitioner Women's Health
DX: N93.9 Abnormal uterine and vaginal bleeding, unspecified (principal)
CPT/HCPCS: 36415; 84443

== ENCOUNTER → 2023-12-22 08:07 | Outpatient (CLI) | payer MEDICAID, SELFPAY ==
--- NOTE | 2023-12-22 07:15 | DI.US_ITS ---
Exam(s) US PELVIS TRANSVAGINAL EXAM: US PELVIS TRANSVAGINAL CLINICAL HISTORY: AUB, cramping, PAIN, R10.2, N93.9 TECHNIQUE: Transabdominal and transvaginal imaging was performed using standard protocol. COMPARISON: No exams were available for comparison FINDINGS: UTERUS: Anteverted. 9.1 x 3.9 x 5.8 cm Endometrium: 3 mm Myometrium: Unremarkable. Cervix: Unremarkable. OVARIES: Right: Cyst or mass: None. Left: Cyst or mass: None. DOPPLER: Color: Symmetric and uniform flow to both ovaries. No hyperemia. CUL-DE-SAC: Free fluid: None. IMPRESSION: 1. Normal-appearing uterus with endometrial stripe within normal limits. 2. Unremarkable bilateral ovaries. DATA REPOSITORY:
== END ==
PROVIDERS: PCP Nurse Practitioner Family; Visit Provider Nurse Practitioner Women's Health
DX: R10.2 Pelvic and perineal pain (principal); N93.9 Abnormal uterine and vaginal bleeding, unspecified
CPT/HCPCS: 76830; 76856

== ENCOUNTER → 2023-12-30 03:51 | Outpatient (CLI) | payer MEDICAID, SELFPAY ==
--- NOTE | 2023-12-30 07:30 | DI.US_ITS ---
APPROVED REPORT EXAM: Comprehensive 2D, Doppler, and color-flow Echocardiogram Conclusion Normal left ventricular wall thickness and chamber size. Ejection fraction is 65%. Wall motion is n ormal Normal right ventricular size and function Both atria are normal in size There is no structural or hemodynamically significant valvular disease Estimated right ventricular systolic pressure is 26 mmHg Wall motion Left Ventricle The left ventricle is normal size. Left ventricular systolic function is normal. The left ventricular ejection fraction is within the normal range. There is normal left ventricular wall thickness. There is normal LV segmental wall motion. There is no ventricular septal defect visualized. LVEF is 65%. Right Ventricle The right ventricle is normal size. The right ventricular systolic function is normal. Atria The left atrium size is normal. The right atrium size is normal. The interatrial septum is intact wit h no evidence for an atrial septal defect. Aortic Valve The aortic valve is normal in structure. There is no aortic valvular stenosis. No aortic regurgitatio n is present. Mitral Valve The mitral valve is normal in structure. No evidence of mitral valve stenosis. Trace mitral regurgita tion. Tricuspid Valve The tricuspid valve is normal in structure. There is no tricuspid valve stenosis. Mild tricuspid regu rgitation. The RVSP is 26.4 mmHg. Pulmonic Valve The pulmonary valve is normal in structure. There is no pulmonic valvular stenosis. There is no pulmo juanjose valvular regurgitation. Great Vessels The aortic root is normal in size. The ascending aorta is normal in size. Aortic arch is normal in ca liber. IVC is normal in size and collapses >50% with inspiration. Pericardium There is no pericardial effusion. 2D Dimensions IVSD d PLAX 0.58 cm F: 0.6-1.0 Ao Root d 2.66 cm F: 2.7 - 3.3 LVPW d PLAX 0.62 cm F: 0.6 - 1.0 Ao Asc Diam d 2.15 cm F: 2.3 - 3.1 LVID d PLAX 4.97 cm F: 3.8 - 5.2 LVDs 3.19 cm F: 2.2 - 3.5 LV EF Teichholz 65.1 % FS 35.81 % LV EDV (Teich) 116.4 mL LV ESV (Teich) 40.6 mL Stroke Vol Index (Teich) 45.94 M-Mode TAPSE 2.41 cm (M/F) >1.7 Auto EF LV EDV A4C 101.4 mL LV EDV A2C 120.7 mL LV EDV BP 110.6 mL LV ESV A4C 37.1 mL LV ESV A2C 44.8 mL LV ESV BP 40.4 mL LVEF(%) A4C 63.4 % LVEF(%) A2C 62.9 % LVEF(%) BP 63.5 % LV SV A4C 64.2 ml LV SV A2C 75.9 ml LV SV BP 70.3 ml LV CO A4C 4.4 L/min LV CO A2C 6.1 L/min LV CO BP 5.3 L/min HR A4C 68.97 BPM HR A2C 80.91 BPM LV EDV Index (BP) LA Volume LA Length A4C 3.7 cm LA Length A2C 3.4 cm LA Area A4C s 10.31 cm2 LA Area A2C s 11.07 cm2 LA Vol A4C A-L 24.70 mL LA Vol A2C A-L 30.33 mL LA Vol Biplane A-L 28.3 mL LA Vol/BSA A4C A-L LA Vol/BSA A2C A-L LA Vol/BSA BP A-L 17.1 mL/m2 LA Vol A4C MOD 21.4 mL LA Vol A2C MOD 22.0 mL LA Vol BP MOD 22.3 mL RA Volume RA Area A4C 6.5 cm2 RA ESV A4C (A-L) 11.7mL RA Vol/BSA A4C A-L RA Length A4C 3.1 cm RA ESV A4C (MOD) 11.0mL LV Diastology MV E' medial 0.122 (>0.07 m/s) MV E Vmax 0.80 (0.4-1.3 m/s) MV E/E' MED 6.54 (<14) MV A Vmax 0.80 (0.4-1.3 m/s) MV E' lateral 0.127 (>0.1 m/s) E/A Ratio 1.0 MV E/E' LAT 6.27 (<14) MV E' Average 0.125 m/s MV E/E'(average) 6.40 Aortic Valve AoV Vmax 1.40 m/s LVOT Vmax 0.98 m/s AoV Peak Grad 7.8 mmHg LVOT Peak Grad 3.8 mmHg AoV Area (Vmax) 2.10 cm2 LVOT VTI 0.210 m AoV VTI 0.266 m LVOT Mean Grad 2.1 mmHg AoV Mean Darnell. 0.93 m/s LVOT SV 62.93 mL AoV Mean Grad 3.9 mmHg LVOT Diam s 1.95 cm AoV Area (VTI) 2.37 cm2 Velocity Ratio 0.70 Mitral Valve MV DT 92 (160-240 msec) Pulmonary Valve PV Vmax 0.93 (0.5-1.5 m/s) RVOT Vmax 0.50 m/s PV Peak Grad 3.5 mmHg RVOT Peak Gr. 1.0 mmHg PV Mean Darnell 0.67 m/s RVOT VTI 0.106 m PV Mean Grad 2.0 mmHg RVOT Mean Gr. 0.7 mmHg Tricuspid Valve RA Pressure 3.00 mmHg TR Vmax 2.42 m/s TR Peak Grad 23.4 mmHg RVSP (TR) 26.4 mmHg
== END ==
PROVIDERS: PCP Nurse Practitioner Family; Visit Provider Internal Medicine Nephrology
DX: I95.0 Idiopathic hypotension (principal); R00.2 Palpitations
CPT/HCPCS: 93306

== ENCOUNTER 2024-03-20 06:37 | Emergency (ER) | payer MEDICAID, SELFPAY ==
[2024-03-20 06:43] VITALS: BP 98/65; PULSE 100; RESP 16; TEMP 36.6; O2SAT 100
--- NOTE | 2024-03-20 07:06 | ED.GENADUL_ITS ---
Discharge Plan Disposition Patient Disposition: Home Condition: Stable Discharge Details Clinical Impression: Cold sore Primary Care Provider: Cindy Holman ED Provider: Michael Waddell Home Meds and New Rx's Prescriptions: New valacyclovir 1 gram tablet 1,000 mg PO BID 7 Days Qty: 14 0RF No Action sumatriptan succinate 50 mg tablet 50 mg PO ONCE PRN norethindrone (contraceptive) 0.35 mg tablet 0.35 mg PO DAILY Qty: 84 3RF hydrocortisone 1 % cream 1 applic topical BID Qty: 28.35 0RF acetylcysteine 600 mg capsule 600 mg PO TID Patient Comments: TAKE 2 CAPSULES BY MOUTH IN THE MORNING AND 1-2 CAPSULES IN THE AFTERNOON OR EARLY EVENING ondansetron 4 mg tablet,disintegrating 4 mg PO Q8H PRNQty: 30 0RF Discharge Instructions Instructions: Cold Sores ED Additional Instructions: Please follow-up with your primary care physician. Return to the emergency department for any worsening symptoms HPI General Date/Time Provider Initiated Documentation: 03/20/24 06:54 . HPI Narrative: 33-year-old female presents with lesion to her lower lip over the last couple of days, no systemic signs of illness, no headache no fever no nausea no vomiting no shortness of breath no other lesions on body. Patient denies history of cold sores, does have new sexual partner within the last 8 months. Related Data Home Medications ?Medication ?Instructions ?Recorded ?Confirmed sumatriptan succinate 50 mg tablet 50 mg PO ONCE PRN 01/12/23 03/20/24 hydrocortisone 1 % topical cream 1 applic topical BID #28.35 grams 01/14/23 03/20/24 acetylcysteine 600 mg capsule 600 mg PO TID 07/21/23 03/20/24 ondansetron 4 mg disintegrating 4 mg PO Q8H PRN #30 tabs 11/27/23 03/20/24 tablet norethindrone (contraceptive) 0.35 0.35 mg PO DAILY #84 tabs 03/06/24 03/20/24 mg tablet valacyclovir 1 gram tablet 1,000 mg PO BID 7 days #14 tabs 03/20/24 Previous Rx's ?Medication ?Instructions ?Recorded hydrocortisone 1 % topical cream 1 applic topical BID #28.35 grams 01/14/23 ondansetron 4 mg disintegrating 4 mg PO Q8H PRN #30 tabs 11/27/23 tablet norethindrone (contraceptive) 0.35 0.35 mg PO DAILY #84 tabs 03/06/24 mg tablet valacyclovir 1 gram tablet 1,000 mg PO BID 7 days #14 tabs 03/20/24 Allergies Allergy/AdvReac Type Severity Reaction Status Date / Time No Known Allergies Allergy Verified 03/20/24 06:48 General Stated Complaint: DentalOral GIAN: 4 Exam Narrative Exam Narrative: Erythematous crusted lesion approximately 1 cm diameter with evidence of likely prior vesicle right lower lip Normal oropharynx tongue secretions normal speech Alert oriented interactive Moving neck without issue supple nonmeningeal Moving all extremities ambulatory without ataxia No appreciable lesions to eyes ears neck or exposed areas of extremities Course Vital Signs Vital signs: Vital Signs Temperature 36.6 C 03/20/24 06:43 Pulse 100 H 03/20/24 06:43 Respiratory Rate 16 03/20/24 06:43 Blood Pressure 98/65 L 03/20/24 06:43 Pulse Oximetry 100 03/20/24 06:43 Temperature 36.6 C 03/20/24 06:43 Temperature Source Temporal Artery Scan 03/20/24 06:43 Pulse 100 H 03/20/24 06:43 Respiratory Rate 16 03/20/24 06:43 Respiratory Effort Normal, Non-Labored 03/20/24 06:49 Blood Pressure 98/65 L 03/20/24 06:43 Blood Pressure Position Sitting 03/20/24 06:43 Pulse Oximetry 100 03/20/24 06:43 Oxygen Delivery Method Room Air 03/20/24 06:43 Oxygen Flow Rate 0 03/20/24 06:43 Medical Decision Making 33-year-old female presents with lesion to her lower lip over the last couple of days, no systemic signs of illness, no headache no fever no nausea no vomiting no shortness of breath no other lesions on body. Patient denies history of cold sores, does have new sexual partner within the last 8 months. Evidence of crusted vesicular lesion lower lip, no systemic signs of illness afebrile nontoxic. Nonmeningeal. 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 Patient aware of different strains of HSV and would like to be swabbed to determine which strain she has. Unfortunately we do not have the swabs availabl e. We do have PCR blood tests after discussion with patient she would rather follow-up at a facility that has viral swab then obtain PCR blood test. Patient would like to start antiviral. Will follow-up with primary care physician. Given strict return precautions and home care instructions. Quality:SDOH Health Related Social Needs: No Data to Display PFSH All Active Problems (Updated 03/20/24 @ 07:10 by Michael Waddell MD) Cold sore (Acute) Contraception (Acute) POP COVID (Acute) Nausea & vomiting (Acute) Neuropathy (Acute) Medical History Anxiety (10/01/14) Depression (10/01/14) Migraine Surgical History Adenoidectomy H/O wisdom tooth extraction Tonsillectomy Age 14yrs Family History Father No problems noted. Mother No problems noted. Grandmother Personal history of malignant neoplasm Hyperlipidemia Grandfather No problems noted. Social History Smoking/Tobacco Use Status: Current every day Tobacco Type: cigarettes Smoking risk assessment performed?: Yes Alcohol Intake: current Alcohol Intake frequency: holidays/special occasions only Drug use: Daily Substance use type: marijuana Housing: other Do you feel safe at home: Yes Do you feel safe in your relationship?: Yes Female Reproductive History Menstrual control method: pills (POP) History History 1 Para 1 Hx # Term Pregnancies Multiple births Hx # Pregnancies Ectopic pregnancies AB induced Hx Number of Living Children AB spontaneous
== END 2024-03-20 07:12 | disposition home or self-care (01) ==
PROVIDERS: Emergency Provider Emergency Medicine; PCP Nurse Practitioner Family
DX: B00.1 Herpesviral vesicular dermatitis (principal); F17.210 Nicotine dependence, cigarettes, uncomplicated
CPT/HCPCS: 99283

== ENCOUNTER 2024-06-01 21:40 | Outpatient (REF) | payer MEDICAID, SELFPAY ==
[2024-06-01 22:28] LABS: Bacteria Many HPF (Negative); C & S Indicated? C&S Done As Ordered; Casts Negative LPF (Negative); Crystals Negative HPF (Negative); Epithelial Cells Rare HPF (Negative); Mucus Negative (Negative); RBC 0-2 HPF (0-2); WBC 0-2 HPF (0-5)
== END 2024-06-01 21:41 | disposition home or self-care (01) ==
LOC: LBN 21:40
PROVIDERS: PCP Nurse Practitioner Family; Visit Provider Physician Assistant Medical
DX: R30.0 Dysuria (principal)
CPT/HCPCS: 87077; 81015; 87086; 87186; 87480; 87510; 87660

== ENCOUNTER 2024-11-24 15:32 | Outpatient (REF) | payer MEDICAID, SELFPAY ==
[2024-11-24 21:09] LABS: Bilirubin Negative (Negative); Blood Small (Negative); Clarity Cloudy (Clear); Glucose Negative (Negative); Ketones Negative (Negative); Leukocyte Esterase Negative (Negative); Nitrite Positive (Negative); Specific Gravity 1.025 (1.005-1.025); Urobilinogen 0.2 mg/dL (Up to 0.2)
[2024-11-24 21:16] LABS: Bacteria Packed HPF (Negative); C & S Indicated? No; Casts Negative LPF (Negative); Crystals Negative HPF (Negative); Epithelial Cells Few HPF (Negative); Mucus Negative (Negative); WBC 0-2 HPF (0-5)
== END 2024-11-24 15:33 | disposition home or self-care (01) ==
LOC: LBN 15:32
PROVIDERS: PCP Nurse Practitioner Family; Visit Provider Physician Assistant
DX: R30.0 Dysuria (principal); R35.0 Frequency of micturition
CPT/HCPCS: 81003; 81015; 87480; 87510; 87660

== ENCOUNTER 2025-01-21 06:47 | Emergency (ER) | payer MEDICAID, SELFPAY ==
[2025-01-21 06:56] VITALS: BP 96/65; PULSE 78; RESP 15; TEMP 36.6; O2SAT 99
[2025-01-21 07:02] VITALS: BP 96/65; PULSE 78; RESP 15; TEMP 36.6; O2SAT 99
[2025-01-21 07:26] LABS: Bilirubin Negative (Negative); Blood Negative (Negative); Clarity Cloudy (Clear); Glucose Negative (Negative); Ketones Negative (Negative); Leukocyte Esterase Trace (Negative); Nitrite Positive (Negative); Urobilinogen 0.2 mg/dL (Up to 0.2)
--- NOTE | 2025-01-21 07:27 | W.ED.GENAD ---
Discharge Plan Disposition Patient Disposition: Home Condition: Improving Discharge Details Clinical Impression: Urinary tract infection, Vaginitis Primary Care Provider: Cindy Holman ED Provider: Willie Shah Home Meds and New Rx's Prescriptions: New sulfamethoxazole-trimethoprim [Bactrim DS] 800-160 mg tablet 1 tab PO BID Qty: 14 0RF metronidazole 500 mg tablet 500 mg PO BID Qty: 14 0RF No Action sumatriptan succinate 50 mg tablet 50 mg PO ONCE PRN norethindrone (contraceptive) 0.35 mg tablet 0.35 mg PO DAILY Qty: 84 3RF acetylcysteine 600 mg capsule 600 mg PO TID Patient Comments: TAKE 2 CAPSULES BY MOUTH IN THE MORNING AND 1-2 CAPSULES IN THE AFTERNOON OR EARLY EVENING ondansetron 4 mg tablet,disintegrating 4 mg PO Q8H PRNQty: 30 0RF Discharge Instructions Instructions: Urinary Tract Infection, Adult ED, Bacterial Vaginosis ED Additional Instructions: Take 1 Bactrim tablet every 12 hours for the next 7 days. Take 1 metronidazole tablet every 12 hours for the next 7 days. Follow-up with regular primary care doctor for reevaluation further management of symptoms not appearing at this care plan. You can always return to the ER for any new concerns or sudden changes in your health which you feel require emergency medical attention. Discharge Data Discharge Physician: Willie Shah [facility] General Date/Time Provider Initiated Documentation: 01/21/25 06:58. HPI Narrative: The patient is a 34-year-old female, presents the emergency department complaining of 2 days of urgency, frequency, and urinary discomfort. She also reports that she has got some vaginal discomfort which she feels is vaginosis as she has had the symptoms in the past. The patient denies any vaginal discharge. She denies any new sexual partners. The patient denies any recent fevers or chills. The patient denies any back or flank pain. In the past she has used metronidazole and Bactrim without difficulty Related Data Home Medications ?Medication ?Instructions ?Recorded ?Confirmed sumatriptan succinate 50 mg tablet 50 mg PO ONCE PRN 01/12/23 01/21/25 acetylcysteine 600 mg capsule 600 mg PO TID 07/21/23 01/21/25 ondansetron 4 mg disintegrating 4 mg PO Q8H PRN #30 tabs 11/27/23 01/21/25 tablet norethindrone (contraceptive) 0.35 0.35 mg PO DAILY #84 tabs 03/06/24 01/21/25 mg tablet metronidazole 500 mg tablet 500 mg PO BID #14 tabs 01/21/25 sulfamethoxazole 800 1 tab PO BID #14 tabs 01/21/25 mg-trimethoprim 160 mg tablet (Bactrim DS) Previous Rx's ?Medication ?Instructions ?Recorded ondansetron 4 mg disintegrating 4 mg PO Q8H PRN #30 tabs 11/27/23 tablet norethindrone (contraceptive) 0.35 0.35 mg PO DAILY #84 tabs 03/06/24 mg tablet metronidazole 500 mg tablet 500 mg PO BID #14 tabs 01/21/25 sulfamethoxazole 800 1 tab PO BID #14 tabs 01/21/25 mg-trimethoprim 160 mg tablet (Bactrim DS) Allergies Allergy/AdvReac Type Severity Reaction Status Date / Time No Known Allergies Allergy Verified 01/21/25 07:00 General Stated Complaint: Urinary GIAN: 4 Exam Const General: cooperative, healthy appearing and no acute distress Resp Effort & Inspection: normal respiratory effort and able to speak in complete sentences GI Inspection: normal to inspection Palpation: soft Skin General skin exam: no rashes or lesions noted and turgor normal Neuro General: patient alert, patient awake, patient oriented x3, no focal motor deficits and CN's II-XI intact bilaterally Course Vital Signs Vital signs: Vital Signs Temperature 36.6 C 01/21/25 06:56 Pulse 78 01/21/25 06:56 Respiratory Rate 15 01/21/25 06:56 Blood Pressure 96/65 L 01/21/25 06:56 Pulse Oximetry 99 01/21/25 06:56 Temperature 36.6 C 01/21/25 07:02 Temperature Source Oral 01/21/25 07:02 Pulse 78 01/21/25 07:02 Respiratory Rate 15 01/21/25 07:02 Blood Pressure 96/65 L 01/21/25 07:02 Blood Pressure Position Sitting 01/21/25 07:02 Pulse Oximetry 99 01/21/25 07:02 Oxygen Delivery Method Room Air 01/21/25 07:02 Oxygen Flow Rate 0 01/21/25 07:02 Pain Level 1 01/21/25 07:02 Medical Decision Making The patient was seen and examined. Her urine was consistent with a urinary tract infection. The patient self swabbed and this was sent off for testing for vaginosis. The patient will be given oral Bactrim and metronidazole for 7 days to help resolve her symptoms. Primary care follow-up recommended patient is not improving at this care plan. PFSH All Active Problems (Updated 01/21/25 @ 07:50 by Willie Shah MD) Vaginitis (Acute) Urinary tract infection (Acute) Contraception (Acute) POP COVID (Acute) Nausea & vomiting (Acute) Neuropathy (Acute) Medical History Depression (10/01/14) Anxiety (10/01/14) Migraine Surgical History H/O wisdom tooth extraction Tonsillectomy Age 14yrs Adenoidectomy Family History Father No problems noted. Mother No problems noted. Grandmother Personal history of malignant neoplasm Hyperlipidemia Grandfather No problems noted. Social History Smoking/Tobacco Use Status: Current every day Tobacco Type: cigarettes Smoking risk assessment performed?: Yes Alcohol Intake: current Alcohol Intake frequency: holidays/special occasions only Drug use: Daily Substance use type: marijuana Housing: other Do you feel safe at home: Yes Do you feel safe in your relationship?: Yes Female Reproductive History Menstrual control method: pills (POP) History History 1 Para 1 Hx # Term Pregnancies Multiple births Hx # Pregnancies Ectopic pregnancies AB induced Hx Number of Living Children AB spontaneous PAWSS Have you Been Recently Intoxicated or Drunk Within the Last 30 days?: No Have you Ever Experienced Previous Episodes of Alcohol Withdrawal?: No Have you ever Experienced Withdrawal Seizures?: No Have you ever Experienced Delirium Tremens(DT)s?: No Have you ever undergone Alcohol Rehabilitation Treatment (i.e, inpt ot outpatient treatment programs)?: No Have you ever Experienced Blackouts?: No Have you ever Combined Alcohol with other Downers within the last 90 days?: No Have you ever Combined Alcohol with any other Substance of Abuse during the last 90 days?: No Result: 0
[2025-01-21 07:33] LABS: RBC 0-2 HPF (0-2)
[2025-01-21 07:34] LABS: Bacteria Many HPF (Negative); C & S Indicated? No; Casts Negative LPF (Negative); Crystals Negative HPF (Negative); Epithelial Cells Moderate HPF (Negative); Mucus Moderate (Negative)
[2025-01-21] MEDS: metroNIDAZOLE 500 MG TAB PO (07:44)
[2025-01-21] MEDS: Sulfameth/Trimeth DS TAB 1 TAB PO (07:44)
[2025-01-22 13:33] LABS: Bacterial Vaginosis (BV) Positive (Negative); Candida glabrata Negative (Negative); Candida species group Negative (Negative); Chlamydia Result Negative (Negative); GC Result Negative (Negative); Trichomonas vaginalis Negative (Negative)
== END 2025-01-21 07:59 | disposition home or self-care (01) ==
PROVIDERS: Emergency Provider Emergency Medicine Emergency Medical Services; PCP Nurse Practitioner Family
DX: N39.0 Urinary tract infection, site not specified (principal); N76.0 Acute vaginitis
CPT/HCPCS: 99283 ×2; 81513; 87481; 87491; 87591; 87661; 81003; 81015

== ENCOUNTER 2025-03-10 08:02 | Emergency (ER) | payer MEDICAID, SELFPAY ==
[2025-03-10 08:04] VITALS: BP 107/59; PULSE 104; RESP 14; TEMP 36.4; O2SAT 100
[2025-03-10 08:23] VITALS: BP 107/59; PULSE 104; RESP 14; TEMP 36.4; O2SAT 100
[2025-03-10 08:34] LABS: Glucose Negative (Negative)
[2025-03-10 08:49] LABS: C & S Indicated? No; WBC 0-2 HPF (0-5)
--- NOTE | 2025-03-10 09:02 | ED.GENADUL_ITS ---
Discharge Plan Disposition Patient Disposition: Home Condition: Stable Discharge Details Clinical Impression: Dysuria, Janae infection, Bacterial vaginosis Primary Care Provider: Cindy Holman ED Provider: Moody Villar Home Meds and New Rx's Prescriptions: New fluconazole 150 mg tablet 150 mg PO Q3D Qty: 2 0RF Rx Instructions: may repeat second dose 72 hrs after first dose if symptoms persist metronidazole 1 % gel with pump 1 applic topical QHS 5 Days Qty: 55 0RF Continued sumatriptan succinate 50 mg tablet 50 mg PO ONCE PRN norethindrone (contraceptive) 0.35 mg tablet 0.35 mg PO DAILY Qty: 84 0RF acetylcysteine 600 mg capsule 600 mg PO TID Patient Comments: TAKE 2 CAPSULES BY MOUTH IN THE MORNING AND 1-2 CAPSULES IN THE AFTERNOON OR EARLY EVENING ondansetron 4 mg tablet,disintegrating 4 mg PO Q8H PRNQty: 30 0RF Discharge Instructions Instructions: Dysuria (ED) Additional Instructions: You were seen in the emergency department for your dysuria, there is no apparent UTI on your urinalysis and your micro. Your swab for yeast/BV is pending as well as a send out test for gonorrhea chlamydia. If any of these return positive I will call you and send antibiotics to your pharmacy, otherwise please drink diuretic drinks like cranberry juice, return for any developing flank pain with fever. Referrals: Cindy Holman [Primary Care Provider, Medicine] Discharge Data Discharge Date/Time-TO BE ENTERED AT DEPARTURE: 03/10/25 09:20 HPI General Date/Time Provider Initiated Documentation: 03/10/25 08:14 . HPI Narrative: 34 year-old female presents to ED today by POV/ambulating with a chief complaint of dysuria, foul odor, cloudy urine with onset 6 days ago. Quality described as feels like a UTI- states she often gets them but never gets diagnosed until the micro exam, no radiation to flank pain, fever. Severity is described as moderate. Palliating factors include nothing specific. Provoking factors include nothing specific. Events leading up to the incident/Associated Symptoms: Patient denies possibility of , no new sexual partners. Patient not anticoagulated. Related Data Home Medications ?Medication ?Instructions ?Recorded ?Confirmed sumatriptan succinate 50 mg tablet 50 mg PO ONCE PRN 0 01/12/23 03/10/25 acetylcysteine 600 mg capsule 600 mg PO TID 07/21/23 0 03/10/25 ondansetron 4 mg disintegrating 4 mg PO Q8H PRN #30 ta bs 11/27/23 03/10/25 tablet norethindrone (contraceptive) 0.35 0.35 mg PO DAILY #8 4 tabs 03/05/25 03/10/25 mg tablet fluconazole 150 mg tablet 150 mg PO Q3D 2 doses #2 tab s 03/10/25 metronidazole 1 % topical gel with 1 applic topical QH S 5 days #55 03/10/25 pump grams Previous Rx's ?Medication ?Instructions ?Recorded ondansetron 4 mg disintegrating 4 mg PO Q8H PRN #30 ta bs 11/27/23 tablet norethindrone (contraceptive) 0.35 0.35 mg PO DAILY #8 4 tabs 03/05/25 mg tablet fluconazole 150 mg tablet 150 mg PO Q3D 2 doses #2 tab s 03/10/25 metronidazole 1 % topical gel with 1 applic topical QH S 5 days #55 03/10/25 pump grams Allergies Allergy/AdvReac Type Severity Reaction Status Date / Time No Known Allergies Allergy Verified 03/10/25 08:10 General Stated Complaint: Urinary GIAN: 4 Review of Systems All systems reviewed & are unremarkable except as noted in HPI and below Exam Narrative Exam Narrative: GENERAL APPEARANCE: Well-nourished, non-toxic, awake and alert, atraumatic, no acute distress. SKIN: Warm, pink, dry, intact, without rashes/lesions/ulcerations. HEAD: Normocephalic, atraumatic, normal hair distribution for gender/age. EYES: Normal conjunctiva, no exudates on lids/lashes. ENT: Nares patent, no circumoral cyanosis, no facial swelling NECK: Supple, trachea midline, painless cervical ROM. LUNGS/CHEST: Non-labored respirations, normal A/P diameter, symmetrical expansion, no chest wall deformity HEART (CV/PV): No peripheral edema, no JVD. ABDOMEN: Soft, non-distended, no guarding, no abdominal tenderness, no CVA tenderness to percussion bilaterally. MSK: Normal ROM, no swelling/deformity to bilateral UEs or LEs, moving all extremities without weakness, no cyanosis, spine midline without tenderness, normal curvature. NEURO: Mental Status AAOx4 - alert to person, place, time, events No facial droop, no forehead involvement. Motor: No focal weakness - strength 5/5 in bilateral UEs and LEs, proximal and distal, symmetric. Sensory: sensation intact to light touch globally. Gait normal: patient ambulated without ataxia into ED room. PSYCH: euthymic, cooperative, pleasant, appropriate speech Course Vital Signs Vital signs: Vital Signs Temperature 36.4 C L 03/10/25 08:04 Pulse 104 H 03/10/25 08:04 Respiratory Rate 14 03/10/25 08:04 Blood Pressure 107/59 L 03/10/25 08:04 Pulse Oximetry 100 03/10/25 08:04 Temperature 36.4 C L 03/10/25 08:23 Temperature Source Tympanic 03/10/25 08:23 Pulse 104 H 03/10/25 08:23 Respiratory Rate 14 03/10/25 08:23 Blood Pressure 107/59 L 03/10/25 08:23 Blood Pressure Position Sitting 03/10/25 08:23 Pulse Oximetry 100 03/10/25 08:23 Oxygen Delivery Method Room Air 03/10/25 08:23 Oxygen Flow Rate 0 03/10/25 08:23 Pain Level 2 03/10/25 08:23 Comment has not taken otc medications for her symptoms 03/10/25 08:04 Lab/Test Results Lab/Test Results: Laboratory Tests Range/Units 03/10/25 08:14 Urine Color (Yellow) Yellow Urine Clarity (Clear) Clear Urine pH (5-8) 6.0 Ur Specific [place] (1.005-1.025) 1.010 Urine Protein (Neg-Trace) mg/dL Negative Urine Ketones (Negative) mg/dL Negative Urine Blood (Negative) Trace-intact H Urine Nitrite (Negative) Negative Urine Bilirubin (Negative) Negative Urine Urobilinogen (Up to 0.2) mg/dL 0.2 Ur Leukocyte Esterase (Negative) Negative Urine RBC (0-2) HPF 3-5 H Urine WBC (0-5) HPF 0-2 Ur Epithelial Cells (Negative) HPF Moderate Urine Crystals (Negative) HPF Negative Urine Bacteria (Negative) HPF Moderate Urine Casts (Negative) LPF Negative Urine Mucus (Negative) Trace Ur Culture Indicated? No Urine Glucose (Negative) mg/dL Negative POC- Test(urine) Negative Medical Decision Making This dictation utilizes [id number] dictation software and may contain unedited grammatical errors. 34 year-old female presents to ED today by POV/ambulating with a chief complaint of dysuria, foul odor, cloudy urine with onset 6 days ago. Quality described as feels like a UTI- states she often gets them but never gets diagnosed until the micro exam, no radiation to flank pain, fever. Severity is described as moderate. Palliating factors include nothing specific. Provoking factors include nothing specific. Events leading up to the incident/Associated Symptoms: Patient denies possibility of , no new sexual partners. Patients' medical history: Noncontributory. Family and social history: Noncontributory. Pertinent exam findings / vital signs include no lower abdominal tenderness, no CVA tenderness to percussion bilaterally, pelvic exam deferred for patient preference. Differential / pathologies of concern include STI, UTI, vaginitis. Diagnostic studies of: - UA, NG/GC, vaginal pathogen screen. 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 ED Course/Assessment/Plan: 34-year-old female presents with dysuria, foul-smelling odor, cloudy urine, test negative on UA for UTI, has both Janae and BV, sent in prescriptions after discharge, patient was counseled on urine culture result pending, strict return criteria for any acute worsening. Findings not consistent with PID, pyelonephritis. Disposition of Dysuria, Janae Infection, Bacterial Vaginosis. Patient verbalized understanding of the plan and return to ED criteria and engaged in shared decision making. Medical Records Medical records reviewed: Yes I reviewed the patient's medical records. Lab Data Lab results reviewed: Yes I reviewed the patient's lab results. Lab results narrative: Vag pathogen POS for janae and BV Labs: 03/10/25 09:04 Vaginal Vaginitis Screen - Final Laboratory Tests Range/Units 03/10/25 08:14 Urine Color (Yellow) Yellow Urine Clarity (Clear) Clear Urine pH (5-8) 6.0 Ur Specific [place] (1.005-1.025) 1.010 Urine Protein (Neg-Trace) mg/dL Negative Urine Ketones (Negative) mg/dL Negative Urine Blood (Negative) Trace-intact H Urine Nitrite (Negative) Negative Urine Bilirubin (Negative) Negative Urine Urobilinogen (Up to 0.2) mg/dL 0.2 Ur Leukocyte Esterase (Negative) Negative Urine RBC (0-2) HPF 3-5 H Urine WBC (0-5) HPF 0-2 Ur Epithelial Cells (Negative) HPF Moderate Urine Crystals (Negative) HPF Negative Urine Bacteria (Negative) HPF Moderate Urine Casts (Negative) LPF Negative Urine Mucus (Negative) Trace Ur Culture Indicated? No Urine Glucose (Negative) mg/dL Negative PFSH All Active Problems (Updated 03/10/25 @ 15:26 by EFREN Puentes) Bacterial vaginosis (Acute) Janae infection (Acute) Dysuria (Acute) Contraception (Acute) POP COVID (Acute) Nausea & vomiting (Acute) Neuropathy (Acute) Medical History Depression (10/01/14) Anxiety (10/01/14) Migraine Surgical History H/O wisdom tooth extraction Tonsillectomy Age 14yrs Adenoidectomy Family History Father No problems noted. Mother No problems noted. Grandmother Personal history of malignant neoplasm Hyperlipidemia Grandfather No problems noted. Social History Smoking/Tobacco Use Status: Current every day Tobacco Type: cigarettes Smoking risk assessment performed?: Yes Alcohol Intake: current Alcohol Intake frequency: holidays/special occasions only Drug use: Daily Substance use type: marijuana Housing: other Do you feel safe at home: Yes Do you feel safe in your relationship?: Yes Female Reproductive History Menstrual control method: pills (POP) History History 1 Para 1 Hx # Term Pregnancies Multiple births Hx # Pregnancies Ectopic pregnancies AB induced Hx Number of Living Children AB spontaneous
[2025-03-10 09:08] VITALS: BP 128/81; PULSE 87; O2SAT 100
--- NOTE | 2025-03-10 16:52 | NUR.NOTE ---
Addendum entered by Maeve Murphy 03/11/25 11:05: [facility] notified that they do not have to do the prior auth. Addendum entered by Maeve Murphy 03/11/25 11:03: 03/11/25 the prescription was changed to oral and is covered by insurance. Original Note: Access chart to fax prior authorization to PCP for metronidazole 1% gel to be reviewed. Nursing Note:
--- NOTE | 2025-03-11 10:54 | NUR.NOTE ---
Nursing Note: Received call from patient that she picked up her prescriptions and only received diflucan but no antibiotics. Metronidazole gel was sent in but not covered by her insurance and pt prefers PO meds. Verbal order received from EFREN Lainez [facility] Met[facility] 500mg PO BID x 7 days
[2025-03-12 12:13] LABS: Chlamydia Result Negative (Negative); GC Result Negative (Negative)
--- NOTE | 2025-03-13 06:46 | NUR.NOTE ---
Accessed Pt chart to identify PCP, faxed refill request to [facility].
== END 2025-03-10 09:20 | disposition home or self-care (01) ==
PROVIDERS: Emergency Provider Physician Assistant; PCP Nurse Practitioner Family
DX: R30.0 Dysuria (principal); B37.31 Acute candidiasis of vulva and vagina; N76.0 Acute vaginitis
CPT/HCPCS: 99283 ×2; 81025; 87491; 87591; 81003; 81015; 87480; 87510; 87660

== ENCOUNTER 2025-03-28 14:24 | Outpatient (REF) | payer MEDICAID, SELFPAY ==
--- NOTE | 2025-03-28 14:10 | PAPFT_PTH ---
PATIENT: Clarita Dominguez LOC: [facility] U#:[id number] AGE/SX: 34/F ROOM: RE03/28/[address]: Hanny Conrad NP : 1990 BED: DIS: 03/28/2025 SPEC #: [id number] RECD: 03/28/25 17:37 STATUS: KELLIE REPepe #: [id number] ZAIDA: 03/28/25 14:[address]: Hanny Conrad NP DEPT: [facility] Cytology RECD BY: María Elena Kate ENTERED: 03/28/25 17:38 SP TYPE: PAPFT OTHR DR: Cindy Holman Tissues: 1 - CX/ENDOCX FOR PAP SMEARS Procedures: PAP THIN PREP/[facility] Screening HPV DNA PROBE Comments: [id number] (HPV 16 & 18/45)
== END 2025-03-28 14:25 | disposition home or self-care (01) ==
LOC: LBN 14:24
PROVIDERS: PCP Nurse Practitioner Family; Visit Provider Nurse Practitioner Women's Health
DX: Z12.4 Encounter for screening for malignant neoplasm of cervix (principal)
CPT/HCPCS: 88142; 87624

== ENCOUNTER 2025-04-10 15:25 | Outpatient (REF) | payer MEDICAID, SELFPAY | END 2025-04-10 15:26 | disposition home or self-care (01) | LOC: LBN 15:25 | PROVIDERS: PCP Nurse Practitioner Family; Visit Provider Physician Assistant | DX: R30.0 Dysuria (principal); N39.0 Urinary tract infection, site not specified | CPT/HCPCS: 87077; 87086; 87186; 87480; 87510; 87660 ==

== ENCOUNTER 2025-04-23 15:51 | Outpatient (REF) | payer MEDICAID, SELFPAY ==
[2025-04-23 17:01] LABS: Glucose Negative (Negative)
[2025-04-23 17:19] LABS: C & S Indicated? No
[2025-04-25 12:35] LABS: Chlamydia Result Negative (Negative); GC Result Negative (Negative)
== END 2025-04-23 15:52 | disposition home or self-care (01) ==
LOC: NCHCN 15:51
PROVIDERS: PCP Nurse Practitioner Family; Visit Provider Nurse Practitioner Family
DX: Z11.3 Encounter for screening for infections with a predominantly sexual mode of transmission (principal); R30.0 Dysuria; R39.9 Unspecified symptoms and signs involving the genitourinary system
CPT/HCPCS: 87491; 87591; 81003; 81015; 87480; 87510; 87660

== ENCOUNTER 2025-04-24 08:26 | Outpatient (CLI) | payer MEDICAID, SELFPAY ==
[2025-04-24 19:12] LABS: Hepatitis C Ab w Rflx HCV PCR Negative (Negative)
[2025-04-24 19:22] LABS: HIV-1/2 Ag & Ab Screen Negative (Negative)
[2025-04-25 11:41] LABS: HSV Type 2 Ab, IgG Negative (Negative)
[2025-04-25 11:46] LABS: Syphilis Serology (RPR) Negative (Negative)
== END 2025-04-24 08:27 | disposition home or self-care (01) ==
LOC: LBO 08:27
PROVIDERS: PCP Nurse Practitioner Family; Visit Provider Nurse Practitioner Family
DX: Z11.3 Encounter for screening for infections with a predominantly sexual mode of transmission (principal)
CPT/HCPCS: 36415; 86803; 87389; 86592; 86695; 86696

== ENCOUNTER 2025-05-18 12:05 | Outpatient (REF) | payer MEDICAID, SELFPAY ==
[2025-05-18 16:27] LABS: ALT 26 U/L (14-59); AST 10 U/L (15-37); Albumin 4.2 g/dL (3.4-5.0); Alkaline Phosphatase 32 U/L (46-116); Anion Gap 6.7 mmol/L (3-11); BUN 17 mg/dL (7-18); Bilirubin, Total 1.8 mg/dL (0.2-1.0); CO2 30.3 mmol/L (21.0-32.0); Calcium 9.5 mg/dL (8.5-10.1); Chloride 105 mmol/L (98-107); Estimated GFR 127.72 (mL/min/1.73m2); Glucose 78 mg/dL (74-106); Potassium 4.6 mmol/L (3.5-5.1); Sodium 142 mmol/L (136-145); Total Protein 7.0 g/dL (6.4-8.2)
[2025-05-18 17:41] LABS: Bilirubin, Direct 0.3 mg/dL (0.0-0.2); Magnesium 2.0 mg/dL (1.8-2.4)
[2025-05-24 15:47] LABS: 1,25-Dihydroxyvitamin D 38 pg/mL (18-78)
== END 2025-05-18 12:06 | disposition home or self-care (01) ==
LOC: NCHCN 12:05
PROVIDERS: PCP Nurse Practitioner Family; Visit Provider Nurse Practitioner Family
DX: N76.0 Acute vaginitis (principal); R17 Unspecified jaundice; R79.89 Other specified abnormal findings of blood chemistry; R30.0 Dysuria
CPT/HCPCS: 80053; 82248; 82652; 83735; 87086; 87480; 87510; 87660